=== PATIENT | female | born 1945 | race Caucasian/White ===

== ENCOUNTER 2020-09-20 09:33 | Outpatient (CLI) | payer MEDICAID, SELFPAY ==
--- NOTE | 2020-09-20 09:38 | MM_ITS ---
WS: [id number] Right breast diagnostic digital mammogram, 09/20/2020 Clinical Data: HX OF BREAST CA Comparison: 08/08/2019, 06/29/2018, 06/03/2017, 04/14/2016, 03/25/2015, 03/08/2014, 03/06/2013, 03/04/2012, 02/23, 02/12/2009, 12/13/2007, 12/02/2006. Findings: The right breast shows fat replacement. There are vascular calcifications in the right breast. No spi culated masses or clustered calcifications are seen. MM/[place] [id number] Impression: 1. Negative right breast mammogram unchanged. 2. Recommend annual right breast mammogram. BIRADS: 1-Negative FOLLOW UP: 1 Year Follow-up The CAD checker dump grounds was used.
== END 2020-09-20 09:34 | disposition home or self-care (01) ==
PROVIDERS: Family Provider Internal Medicine; PCP Internal Medicine; Visit Provider Internal Medicine
DX: Z85.3 Personal history of malignant neoplasm of breast (principal)
CPT/HCPCS: 77065

== ENCOUNTER 2020-12-09 09:48 | Emergency (ER) | payer MEDICAID, SELFPAY ==
[2020-12-09 09:51] VITALS: BP 169/76; PULSE 82; RESP 18; TEMP 36.4; O2SAT 96; BMI 31.8
--- NOTE | 2020-12-09 10:00 | XRR_ITS ---
PROCEDURE INFORMATION: Exam: XR Sacrum and Coccyx, 2 or More Views Exam date and time: 12/09/2020 11:16 AM Age: 75 years old Clinical indication: Pain and injury or trauma; Fall; Blunt trauma (contusions or hematomas); Pain in coccyx area; Additional info: Fall/pain TECHNIQUE: Imaging protocol: XR of the sacrum and coccyx, 2 or more views. COMPARISON: CR Hip 2-3v RIGHT wwo Pelv* [id number] 08/08/2018 1:30 PM FINDINGS: Bones/joints: There is degenerative narrowing sclerosis and osteophyte formation in the lower lumbar spine. No acute fracture. Soft tissues: Normal. XR/XR sacrum coccyx min 2V [id number] IMPRESSION: No acute findings.
--- NOTE | 2020-12-09 10:00 | XRR_ITS ---
PROCEDURE INFORMATION: Exam: XR Lumbosacral Spine Exam date and time: 12/09/2020 11:16 AM Age: 75 years old Clinical indication: Pain and injury or trauma; Fall; Blunt trauma (contusions or hematomas); Low back pain; Additional info: Fall pain TECHNIQUE: Imaging protocol: XR of the lumbosacral spine. Views: 2 or 3 views. COMPARISON: CR Hip 2-3v RIGHT wwo Pelv* [id number] 08/08/2018 1:30 PM FINDINGS: Bones/joints: Chronic degenerative changes are present in the lumbar spine with joint space narrowing sclerosis and osteophytes. There is sclerosis in the lower lumbar facet joints. No fractures or other acute abnormalities are seen. There is mild scoliosis. Soft tissues: Unremarkable. XR/XR lumbar spine 2-3V* [id number] IMPRESSION: Chronic degenerative disease. No acute abnormality.
--- NOTE | 2020-12-09 10:00 | XRR_ITS ---
PROCEDURE INFORMATION: Exam: XR Right Hip with Pelvis when Performed Exam date and time: 12/09/2020 11:16 AM Age: 75 years old Clinical indication: Pain and injury or trauma; Fall; Blunt trauma (contusions or hematomas); Hip pain; Right hip; Prior surgery TECHNIQUE: Imaging protocol: XR Right hip with pelvis when performed. Views: 1 view. COMPARISON: CR Hip 2-3v RIGHT wwo Pelv* [id number] 08/08/2018 1:30 PM FINDINGS: Bones/joints: Metal orthopedic hardware bridges an old right femoral neck fracture. No recent fracture or other acute bony abnormalities are seen. Degenerative changes are present in the lower lumbar spine with sclerosis and osteophyte formation. Soft tissues: Unremarkable. XR/XR hip RT 2-3V wo/w pel* [id number] IMPRESSION: No acute abnormality.
--- NOTE | 2020-12-09 10:02 | W.ED.FALL ---
HPI - Fall General: Chief Complaint: Fall Stated Complaint: FALL - R HIP Time Seen by Provider: 12/09/20 09:51 History of Present Illness: HPI Narrative: Old female presents with complaints of pain is hard to get her to focus on a specific area. Was able to get her to name the right hip is apparently the most significant amount of her problem. She fell 3 days ago has been walking with a walker since then. She usually does not use a walker. She complains of pain what she describes as all over on and try to get her to focus of more she will say it is her low back or kidney area her pelvis or sacrum and her hips particularly the right side. She not strike her head she did not lose consciousness when she fell. She only fell at one time. She said prior to the fall she was able to ambulate from one apartment to the other approximately 15 feet without any assistance. complaint: fall Onset (ago): day(s) (3) Fall from: standing Place fall occurred: home Loss of consciousness: None Prolonged down time: no Symptoms prior to fall: none Location of injury: back, pelvis and buttocks Associated symptoms-after fall: Reports difficulty walking; Denies abdominal pain, chest pain, confusion, headache(s), hematuria, lightheadedness, neck pain, numbness, short of breath or vertigo Review of Systems Const: Denies: fever(s), chills, body aches, change in appetite, fatigue or malaise ENMT: Denies: throat pain, ear or mastoid pain, nasal discharge or nasal congestion Card: Denies: chest pain or lightheadedness Resp: Denies: dyspnea, productive cough or non-productive cough GI: Denies: abdominal pain : Denies: hematuria Musc: Denies: neck pain Skin/Breast: Denies: rash or pruritus Neuro: Reports: difficulty walking; Denies: headache(s), vertigo or confusion PFS ED PFSH: Medical History (Updated 12/09/20 @ 15:20 by Antonio Little DO) Amputation of right forefoot Diabetes mellitus Physical Exam Const: COMMON NORMALS: no acute distress GENERAL APPEARANCE: cooperative and comfortable ORIENTATION/CONSCIOUSNESS: Yes awake, Yes oriented to person, Yes oriented to place and Yes oriented to time HENMT: COMMON NORMALS: normocephalic, atraumatic and hearing grossly normal bilaterally HEAD & SCALP: normocephalic and atraumatic Neck/C-Spine: COMMON NORMALS: no JVD Resp: COMMON NORMALS: normal respiratory effort, No retractions, No use of accessory muscles and clear to auscultation bilaterally AUSCULTATION: clear to auscultation bilaterally Cardio: COMMON NORMALS: no JVD, regular rate, regular rhythm and No murmurs present (Cardio) RATE: regular rate RHYTHM: regular rhythm GI: COMMON NORMALS: Soft to palpation and No hepatosplenomegaly present AUSCULTATION: Yes normoactive bowel sounds PALPATION: Yes Soft to palpation, No Tenderness to palpation present (GI), No Guarding due to palpation present (GI) and Yes No hepatosplenomegaly present Extremity: COMMON NORMALS: normal to inspection, capillary refill normal, no clubbing, cyanosis or edema, no calf tenderness and no pedal edema Neuro: SENSORIUM/ORIENTATION: Yes oriented to person, Yes oriented to place and Yes oriented to time Skin: COMMON NORMALS: no rashes or lesions noted GENERAL SKIN EXAM: no rashes or lesions noted Course Vital Signs: Vital signs: Vital Signs Temperature 97.5 F L 12/09/20 09:51 Pulse Rate 108 H 12/09/20 15:33 Respiratory Rate 18 12/09/20 15:33 Blood Pressure 185/64 12/09/20 15:33 Pulse Oximetry 98 12/09/20 15:33 MDM - Fall MDM Narrative: Medical decision making narrative: Patient had limited mobility prior states now she needs her walker all the time there is no acute fractures identified in any of her x-rays. She was concerned about her mobility. She declined physical therapy gait and transfer evaluation. She opted instead to go home she will use her walker at home. We had quite a bit of difficulty getting her blood. Her potassium is slightly elevated I believe that is due to mild hemolysis. She was given fluids. Asked her to hold her lisinopril. We will go ahead and discharge her home for now have her follow-up with primary care doctor in the next few days. We did offer to place her in a [place] [facility] facility she refuses. Lab Data: Labs: Lab Results 12/09/20 12/09/20 12/09/20 Range/Units 10:30 10:30 11:43 WBC 12.2 H (4.0-10.0) 10^3/ uL RBC 3.90 L (4.1-5.3) 10^6/u L Hgb 12.3 (11.5-15.3) g/dL Hct 38.3 (37.0-47.0) % MCV 98.2 (81-99) fL MCH 31.5 (28.0-34.0) pg MCHC 32.1 (30.0-36.0) g/dL RDW 15.6 H (12.1-15.1) % Plt Count 207 (130-400) 10^3/c mm MPV 10.4 (7.4-10.4) fL Neut % (Auto) 72.9 % Lymph % (Auto) 16.3 % Cole % (Auto) 7.9 % Eos % (Auto) 2.0 % Baso % (Auto) 0.4 % Neut # (Auto) 8.90 H (1.8-7.7) 10^3/u L Lymph # (Auto) 2.0 (0.8-4.8) 10^3/u L Cole # (Auto) 1.0 H (0.2-0.9) 10^3/u L Eos # (Auto) 0.3 (0.0-0.8) 10^3/u L Baso # (Auto) 0.1 (0.0-0.1) 10^3/u L Nucleated RBC % (a uto) 0 % Nucleated RBCs # 0.0 /100WBC Sodium Cancelled Cancelled Potassium Cancelled Cancelled Chloride Cancelled Cancelled Carbon Dioxide Cancelled Cancelled Anion Gap Cancelled Cancelled BUN Cancelled Cancelled Creatinine Cancelled Cancelled GFR Calculation Cancelled Cancelled Glucose Cancelled Cancelled Calculated Osmolal ity Cancelled Cancelled Calcium Cancelled Cancelled Magnesium Cancelled Cancelled Total Bilirubin Cancelled Cancelled AST Cancelled Cancelled ALT Cancelled Cancelled Alkaline Phosphata se Cancelled Cancelled Creatine Kinase Cancelled Cancelled Total Protein Cancelled Cancelled Albumin Cancelled Cancelled Globulin Cancelled Cancelled Urine Color (Yellow) Urine Appearance (CLEAR) Urine pH (5-7) Ur Specific Gravit y (1.005-1.030) Urine Protein (Negative) Urine Glucose (UA) (Normal) Urine Ketones (Negative) Urine Blood (Negative) Urine Nitrate (Negative) Urine Bilirubin (Negative) Urine Urobilinogen (Negative) mg/dL Ur Leukocyte Mercedes ase (Negative) 12/09/20 12/09/20 Range/Units 12:00 12:44 WBC (4.0-10.0) 10^3/ uL RBC (4.1-5.3) 10^6/u L Hgb (11.5-15.3) g/dL Hct (37.0-47.0) % MCV (81-99) fL MCH (28.0-34.0) pg MCHC (30.0-36.0) g/dL RDW (12.1-15.1) % Plt Count (130-400) 10^3/c mm MPV (7.4-10.4) fL Neut % (Auto) % Lymph % (Auto) % [place] % (Auto) % Eos % (Auto) % Baso % (Auto) % Neut # (Auto) (1.8-7.7) 10^3/u L Lymph # (Auto) (0.8-4.8) 10^3/u L Cole # (Auto) (0.2-0.9) 10^3/u L Eos # (Auto) (0.0-0.8) 10^3/u L Baso # (Auto) (0.0-0.1) 10^3/u L Nucleated RBC % (a uto) % Nucleated RBCs # /100WBC Sodium 139 Potassium 5.3 H Chloride 108 H Carbon Dioxide 19 L Anion Gap 17.3 BUN 34 H Creatinine 1.5 H GFR Calculation Not Reportable Glucose 142 H Calculated Osmolal ity 298 H Calcium 9.3 Magnesium 1.2 L Total Bilirubin 0.5 AST 15 ALT 11 Alkaline Phosphata se 108 H Creatine Kinase 23 L Total Protein 7.6 Albumin 3.9 Globulin 3.7 Urine Color Yellow (Yellow) Urine Appearance Clear (CLEAR) Urine pH 5 (5-7) Ur Specific Gravit y 1.020 (1.005-1.030) Urine Protein Neg (Negative) Urine Glucose (UA) Norm (Normal) Urine Ketones Negative (Negative) Urine Blood Neg (Negative) Urine Nitrate Negative (Negative) Urine Bilirubin Neg (Negative) Urine Urobilinogen Norm (Negative) mg/dL Ur Leukocyte Mercedes ase Negative (Negative) Discharge Plan Discharge Patient Disposition: Home Clinical Impression: Fall, Diabetes mellitus Condition: Stable Prescriptions: No Action chromium 100 mcg Tablet 100 mcg PO DAILY RF: 0 atorvastatin 20 mg tablet 20 mg PO DAILY RF: 0 carvedilol 3.125 mg tablet 3.125 mg PO BID RF: 0 Vitamin C 500 mg Tablet 500 mg PO DAILY RF: 0 Garcinia Cambogia 200-500 mcg-mg Tablet 1 tab PO DAILY RF: 0 allopurinol 300 mg tablet 300 mg PO DAILY RF: 0 lisinopril 5 mg tablet 5 mg PO DAILY RF: 0 metformin 500 mg tablet extended release 24 hr 1,000 mg PO DAILY RF: 0 Discharge Orders: Discharge ED (Routine); Ordered 12/09/20 Ordered By: Antonio Little Referrals: Naldo Rivero DO [Primary Care Provider] - Discharge Diet: Usual diet Discharge Activity: Resume usual activity Patient Instructions: Opioid Safety Coding Level of Care Code ED Husker Operator for Pushpa Fwd Exam Comprehensive
[2020-12-09 10:37] LABS: Basophils # 0.1 10^3/uL (0.0-0.1); Basophils % 0.4 %; Eosinophils # 0.3 10^3/uL (0.0-0.8); Hematocrit 38.3 % (37.0-47.0); Hemoglobin 12.3 g/dL (11.5-15.3); Lymphocytes % 16.3 %; Mean Corpuscular HGB Conc 32.1 g/dL (30.0-36.0); Mean Corpuscular Hemoglobin 31.5 pg (28.0-34.0); Mean Corpuscular Volume 98.2 fL (81-99); Mean Platelet Volume 10.4 fL (7.4-10.4); Monocytes % 7.9 %; Neutrophils % 72.9 %; Nucleated Red Blood Cells % 0 %; Platelet Count 207 10^3/cmm (130-400); Red Cell Distribution Width 15.6 % (12.1-15.1); White Blood Count 12.2 10^3/uL (4.0-10.0)
[2020-12-09 12:00] VITALS: BP 125/64; PULSE 74; RESP 18; O2SAT 98
[2020-12-09 12:11] LABS: Add Urine Microscopic? NO
[2020-12-09 12:26] LABS: Bilirubin Urine Neg (Negative); Blood Urine Neg (Negative); Glucose Urine UA Norm (Normal); Ketones Urine Negative (Negative); Leukocyte Esterase Urine Negative (Negative); Nitrate Urine Negative (Negative); Protein Urine Neg (Negative); Urine Appearance Clear (CLEAR); Urine Color Yellow (Yellow); Urobilinogen Urine Norm (Negative); pH Urine 5 (5-7)
--- NOTE | 2020-12-09 12:38 | PC.NURSE ---
EMS attempted IV x4 without success, nurse attempted 4x without success. Patients veins blow out each time. Lab draws hemolyzed as well x2 as well
[2020-12-09 13:05] LABS: Alanine Aminotransferase 11 U/L (0-33); Albumin Level 3.9 g/dL (3.5-5.2); Alkaline Phosphatase 108 IU/L (35-105); Anion Gap 17.3 (5-19); Aspartate Amino Transferase 15 U/L (0-32); Blood Urea Nitrogen 34 mg/dL (8-23); Calcium 9.3 mg/dL (8.5-10.5); Carbon Dioxide 19 mmol/L (22-29); Chloride 108 mmol/L (98-107); Creatine Phosphokinase 23 U/L (26-192); Globulin 3.7 g/dL (1.3-4.6); Glucose 142 mg/dL (65-115); Magnesium 1.2 mg/dL (1.7-2.3); Osmolality Calculated 298 mOsm/kg (285-295); Potassium 5.3 mmol/L (3.5-5.1); Sodium 139 mmol/L (136-145); Total Bilirubin 0.5 mg/dL (0.15-1.2); Total Protein 7.6 g/dL (6.6-8.7)
[2020-12-09 13:27] VITALS: BP 111/59; PULSE 77; RESP 22; O2SAT 98
[2020-12-09 14:00] VITALS: PULSE 94; RESP 20; O2SAT 98
[2020-12-09] MEDS: HYDROcodone-acetaminophen 5-325 mg Tablet 1 TAB PO (14:03)
--- NOTE | 2020-12-09 14:10 | PC.NURSE ---
Patient refused physical therapy stating that she wouldnt be able to afford the PT bill as insurance will not cover cost
[2020-12-09 15:00] VITALS: BP 185/64; PULSE 88; RESP 18; O2SAT 97
[2020-12-09 15:33] VITALS: BP 185/64; PULSE 108; RESP 18; O2SAT 98
== END 2020-12-09 15:24 | disposition home or self-care (01) ==
PROVIDERS: Emergency Provider Family Medicine; PCP Internal Medicine
DX: E11.9 Type 2 diabetes mellitus without complications (principal); Z79.84 Long term (current) use of oral hypoglycemic drugs; Z89.431 Acquired absence of right foot
CPT/HCPCS: 36415; 72100; 72220; 73502; 80053; 81003; 82550; 83735; 85025; 99283

== ENCOUNTER 2021-11-13 10:45 | Outpatient (CLI) | payer MEDICAID, SELFPAY ==
--- NOTE | 2021-11-13 11:03 | MM_ITS ---
WS: [id number] RIGHT DIGITAL MAMMOGRAPHY WITH CAD CLINICAL INFORMATION: HX OF BREAST CA HISTORY: History of LEFT mastectomy. COMPARISON: September 20, 2020 TECHNIQUE: 5 views of the right breast were obtained. FINDINGS: Scattered fibroglandular densities of the right breast. Vascular calcification. No suspicious focal mass, asymmetry, calcifications, or architectural distortion. No evidence of valerie gnancy. MM/[place] [id number] IMPRESSION: BI-RADS: 2-Benign FOLLOW UP: 1 Year Follow-up Recommend return to annual diagnostic mammography.
== END 2021-11-13 10:46 | disposition home or self-care (01) ==
PROVIDERS: PCP Internal Medicine; Visit Provider Internal Medicine
DX: Z85.3 Personal history of malignant neoplasm of breast (principal)
CPT/HCPCS: 77065

== ENCOUNTER 2022-05-16 09:00 | Emergency (ER) | payer MEDICAID, SELFPAY ==
--- NOTE | 2022-05-16 09:05 | XRR_ITS ---
PROCEDURE INFORMATION: Exam: XR Right Hip Exam date and time: 05/16/2022 9:53 AM Age: 77 years old Clinical indication: Injury or trauma; Fall; Blunt trauma (contusions or hematomas); Right; Prior surgery; Surgery type: RT hip TECHNIQUE: Imaging protocol: Radiologic exam of the Right hip. Views: 2 or 3 views hip with pelvis when performed. AP 1 view pelvis with 2 views hip COMPARISON: CR XR hip RT 2-3V wo/w pel* [id number] 12/09/2020 10:52 AM FINDINGS: Bones/joints: Postsurgical changes are once again seen status post right proximal femoral dynamic hip screw fixation with with distal single anchoring screw. Unchanged appearance of the proximal right femoral region is seen status post healed intratrochanteric fracture. Unchanged moderate right hip degenerative changes are seen. There are no acute fractures or dislocations seen. The visualized right sacroiliac joint shows moderate degenerative changes. Soft tissues: There is no radiographic soft tissue swelling. There are no radiopaque foreign bodies. Severe atherosclerotic vascular calcifications are seen. Notes: If there is further concern, recommend follow-up radiographs or MRI for complete assessment. XR/XR hip RT 2-3V wo/w pel* [id number] IMPRESSION: No acute fracture or dislocation of the right hip. Postsurgical changes of the right proximal femur. Old healed right proximal femoral intratrochanteric fracture.
--- NOTE | 2022-05-16 09:05 | XRR_ITS ---
PROCEDURE INFORMATION: Exam: XR Chest Exam date and time: 05/16/2022 9:53 AM Age: 77 years old Clinical indication: Injury or trauma; Fall; Blunt trauma (contusions or hematomas); Additional info: Dizzy TECHNIQUE: Imaging protocol: Radiologic exam of the chest. Views: 1 view. COMPARISON: CR Chest 1 [place] [id number] 08/07/2018 2:23 PM FINDINGS: Lungs: There are normal lung volumes without confluent interstitial or airspace opacities. Age-related interstitial prominence is seen in the lungs. Pleural spaces: There are no pleural effusions or pneumothorax. Heart/Mediastinum: The heart size is normal. There is a mildly tortuous thoracic aorta. The trachea is in the midline. Bones/joints: No acute abnormalities. Worsened severe bilateral shoulder degenerative changes are seen with subacromial space narrowing and superior humeral head subluxations, consistent with rotator cuff tears. Small degenerative osteophytes and mild degenerative disc disease changes are seen throughout the thoracic spine. There is generalized osteopenia. XR/XR chest 1V portable [id number] IMPRESSION: No confluent infiltrates in the lungs.
--- NOTE | 2022-05-16 09:05 | ECG_ITS ---
[facility] Test Date: 2022-05-16 Pat Name: Shraddha Bull Department: Room: Gender: Female Tool Procurement Coordinator: : 1945 Requested By: Shirley Palma Order Number: [id number] Nina MD: Yury Lynch M.D. Measurements Intervals [place] Rate: 88 P: 28 VA: 159 QRS: 43 QRSD: 122 T: -3 QT: 388 QTc: 471 Interpretive Statements SINUS RHYTHM POSSIBLE RIGHT VENTRICULAR CONDUCTION DELAY [RSR (QR) IN V1/V2] POSSIBLE INFERIOR MYOCARDIAL INFARCTION , PROBABLY OLD [30 ms Q WAVE IN II/aVF] Compared to ECG 08/07/2018 15:36:33 Myocardial infarct finding now present Electronically Signed On 05-16-2022 20:31:48 CDT by Yury Lynch M.D. [id number]
[2022-05-16 09:08] VITALS: BP 170/93; PULSE 93; RESP 18; O2SAT 93
--- NOTE | 2022-05-16 09:17 | ED_ITS ---
HPI - Dizziness General: Chief Complaint: Dizziness Stated Complaint: DIZZINESS/NAUSEA Time Seen by Provider: 05/16/22 09:01 Source: patient and EMS Mode of arrival: EMS Limitations: no limitations History of Present Illness: HPI Narrative: 77-year-old female who states she had gotten up this morning with a bath and states she stood up quickly and got dizzy. She states she then urinated on herself and tripped and fell. She states she had to use her life alert as she was not able to get up. She states that she feels improved she denies any pain from her fall denies hitting her head denies any chest pain denies any dizziness currently she did not have a syncopal event that was near syncopal. Associated symptoms: Denies chest pain, chills, nausea or vomiting Review of Systems Const: Denies: fever(s), chills, body aches or change in appetite Eyes: Denies: blurry vision or eye discomfort ENMT: Denies: throat pain or dental pain Card: Denies: chest pain Resp: Denies: dyspnea GI: Denies: abdominal pain, nausea, vomiting or diarrhea : Denies: dysuria Musc: Denies: neck pain or back pain Skin/Breast: Denies: rash Neuro: Reports: dizziness Psych: Denies: depression [place]/Lymph: Denies: easy bruising All/Imm: Denies: urticaria PFSH ED PFSH: Medical History Amputation of right forefoot Diabetes mellitus Social History (Updated 05/16/22 @ 09:18 by Shirley Palma MD) Substance/Drug Use: never Physical Exam Const: COMMON NORMALS: no acute distress, patient oriented x3 and healthy appearing HENMT: COMMON NORMALS: normocephalic and atraumatic HEAD & SCALP: normocephalic and atraumatic Eye: COMMON NORMALS: Equal, round and reactive pupils present and EOMs intact bilaterally PUPIL: Yes Equal, round and reactive pupils present Neck/C-Spine: COMMON NORMALS: full ROM and supple Chest: COMMONS NORMALS: normal inspection of the chest and normal palpation of entire chest wall Resp: COMMON NORMALS: normal respiratory effort, No retractions, No use of accessory muscles and clear to auscultation bilaterally AUSCULTATION: clear to auscultation bilaterally Cardio: COMMON NORMALS: regular rate, regular rhythm and No murmurs present (Cardio) RATE: regular rate RHYTHM: regular rhythm GI: COMMON NORMALS: Normal to inspection, nondistended, normoactive bowel sounds present, Soft to palpation, non-tender and no masses PALPATION: Yes Soft to palpation Extremity: COMMON NORMALS: normal to inspection and full ROM Neuro: COMMON NORMALS: patient oriented x3, moves all extremities and no focal motor deficits Psych: COMMON NORMALS: mental status grossly normal, Normal thought process present and cooperative THOUGHT PROCESS: Normal thought process present Skin: COMMON NORMALS: no rashes or lesions noted and no wounds GENERAL SKIN EXAM: no rashes or lesions noted Course Vital Signs: Vital signs: Vital Signs Pulse Rate 83 05/16/22 11:35 Respiratory Rate 12 05/16/22 11:35 Blood Pressure 181/112 05/16/22 11:35 Pulse Oximetry 98 05/16/22 11:35 Oxygen Delivery Me thod 05/16/22 09:08 MDM - Dizziness Medical Decision Making Patient presents here with dizziness and near syncopal event patient's back to her baseline here she states she feels well she is able to ambulate troponins here are negative she is hypertensive she has been noncompliant with her meds I informed her she does need to take her meds as prescribed she is stable for discharge she has no signs of a stroke she is to follow-up with PCP and return if worsening. Lab Data : 05/16/22 09:21 05/16/22 09:21 Radiology Impressions Chest X-Ray 05/16/22 09:05 IMPRESSION: No confluent infiltrates in the lungs. Hip/Pelvis X-Ray 05/16/22 09:05 IMPRESSION: No acute fracture or dislocation of the right hip. Postsurgical changes of the right proximal femur. Old healed right proximal femoral intratrochanteric fracture. Laboratory Results WBC 9.9 10^3/uL (4.0-10.0) 05/16/22 09:21 RBC 3.75 10^6/uL (4.1-5.3) L 05/16/22 09:21 Hgb 11.6 g/dL (11.5-15.3) 05/16/22 09:21 Hct 36.6 % (37.0-47.0) L 05/16/22 09:21 MCV 97.6 fl (81-99) 05/16/22 09:21 MCH 30.9 pg (28.0-34.0) 05/16/22 09:21 MCHC 31.7 g/dL (30.0-36.0) 05/16/22 09:21 RDW 14.2 % (12.1-15.1) 05/16/22 09:21 Plt Count 323 10^3/cmm (130-400) 05/16/22 09:21 MPV 10.0 fL (7.4-10.4) 05/16/22 09:21 Neut % (Auto) 72.6 % 05/16/22 09:21 Lymph % (Auto) 16.3 % 05/16/22 09:21 [place] % (Auto) 8.2 % 05/16/22 09:21 Eos % (Auto) 1.9 % 05/16/22 09:21 Baso % (Auto) 0.4 % 05/16/22 09:21 Neut # (Auto) 7.19 10^3/uL (1.8-7.7) 05/16/22 09:21 Lymph # (Auto) 1.6 10^3/uL (0.8-4.8) 05/16/22 09:21 [place] # (Auto) 0.8 10^3/uL (0.2-0.9) 05/16/22 09:21 Eos # (Auto) 0.2 10^3/uL (0.0-0.8) 05/16/22 09:21 Baso # (Auto) 0.0 10^3/uL (0.0-0.1) 05/16/22 09:21 Nucleated RBC % (auto) 0 % 05/16/22 09:21 Nucleated RBCs # 0.0 /100WBC 05/16/22 09:21 Sodium 141 mmol/L (136-145) 05/16/22 09:21 Potassium 4.1 mmol/L (3.5-5.1) 05/16/22 09:21 Chloride 101 mmol/L (98-107) 05/16/22 09:21 Carbon Dioxide 24 mmol/L (22-29) 05/16/22 09:21 Anion Gap 20.1 (5-19) H 05/16/22 09:21 BUN 14 mg/dL (8-23) 05/16/22 09:21 Creatinine 1.1 mg/dL (0.5-0.9) H 05/16/22 09:21 GFR Calculation Not Reportable 05/16/22 09:21 Glucose 169 mg/dL (65-115) H 05/16/22 09:21 Calculated Osmolality 296 mOsm/kg (285-295) H 05/16/22 09:21 Calcium 9.4 mg/dL (8.5-10.5) 05/16/22 09:21 Total Bilirubin 0.6 mg/dL (0.15-1.2) 05/16/22 09:21 AST 29 U/L (0-32) 05/16/22 09:21 ALT 18 U/L (0-33) 05/16/22 09:21 Alkaline Phosphatase 93 IU/L (35-105) 05/16/22 09:21 Troponin T Baseline 25 ng/L (0-10) H 05/16/22 09:21 Troponin T 120 Minute 25.30 ng/L (0-10) H 05/16/22 11:27 Delta Troponin T 0.30 ABS# (0-10) 05/16/22 11:27 Total Protein 6.4 g/dL (6.6-8.7) L 05/16/22 09:21 Albumin 3.7 g/dL (3.5-5.2) 05/16/22 09:21 Globulin 2.7 g/dL (1.3-4.6) 05/16/22 09:21 EKG Data EKG 1: I personally reviewed and interpreted this EKG as follows: EKG interpretation date: 05/16/22 EKG interpretation time: 09:15 Interpretation: nsr hr [address] or t wave abnormalities qrs 122 qtc 434 EKG 2: I personally reviewed and interpreted this EKG as follows: EKG interpretation date: 05/16/22 EKG interpretation time: 11:21 Interpretation: nsr hr [address] or t wave abnormalities qrs 128 qtc 443 Discharge Plan Discharge Patient Disposition: Home Clinical Impression: Near syncope, Hypertension Prescriptions: No Action chromium 100 mcg Tablet 100 mcg PO DAILY atorvastatin 20 mg tablet 20 mg PO DAILY carvedilol 3.125 mg tablet 3.125 mg PO BID Vitamin C 500 mg Tablet 500 mg PO DAILY Garcinia Cambogia 200-500 mcg-mg Tablet 1 tab PO DAILY allopurinol 300 mg tablet 300 mg PO DAILY lisinopril 5 mg tablet 5 mg PO DAILY metformin 500 mg tablet extended release 24 hr 1,000 mg PO DAILY Discharge Orders: Discharge ED (Routine); Ordered 05/16/22 Ordered By: Shirley Palma Referrals: Naldo Rivero DO [Primary Care Provider] - 1-3 days Discharge Diet: Advance as tolerated Discharge Activity: Resume usual activity Patient Instructions: Hypertension (ED), Near Syncope (ED) Coding Level of Care Code ED Instrument And Control Technician for [place] Fwd Exam Comprehensive
[2022-05-16 09:34] LABS: Basophils % 0.4 %; Eosinophils # 0.2 10^3/uL (0.0-0.8); Eosinophils % 1.9 %; Hematocrit 36.6 % (37.0-47.0); Hemoglobin 11.6 g/dL (11.5-15.3); Lymphocytes # 1.6 10^3/uL (0.8-4.8); Lymphocytes % 16.3 %; Mean Corpuscular HGB Conc 31.7 g/dL (30.0-36.0); Mean Corpuscular Hemoglobin 30.9 pg (28.0-34.0); Mean Corpuscular Volume 97.6 fl (81-99); Monocytes # 0.8 10^3/uL (0.2-0.9); Monocytes % 8.2 %; Neutrophils # 7.19 10^3/uL (1.8-7.7); Neutrophils % 72.6 %; Nucleated Red Blood Cells % 0 %; Platelet Count 323 10^3/cmm (130-400); Red Blood Count 3.75 10^6/uL (4.1-5.3); Red Cell Distribution Width 14.2 % (12.1-15.1); White Blood Count 9.9 10^3/uL (4.0-10.0)
[2022-05-16 09:52] LABS: Alanine Aminotransferase 18 U/L (0-33); Albumin Level 3.7 g/dL (3.5-5.2); Alkaline Phosphatase 93 IU/L (35-105); Anion Gap 20.1 (5-19); Aspartate Amino Transferase 29 U/L (0-32); Blood Urea Nitrogen 14 mg/dL (8-23); Calcium 9.4 mg/dL (8.5-10.5); Carbon Dioxide 24 mmol/L (22-29); Chloride 101 mmol/L (98-107); Globulin 2.7 g/dL (1.3-4.6); Glucose 169 mg/dL (65-115); Osmolality Calculated 296 mOsm/kg (285-295); Potassium 4.1 mmol/L (3.5-5.1); Sodium 141 mmol/L (136-145); Total Bilirubin 0.6 mg/dL (0.15-1.2); Total Protein 6.4 g/dL (6.6-8.7)
[2022-05-16 10:00] LABS: Troponin(5th) Baseline 25 ng/L (0-10)
[2022-05-16] MEDS: labetalol 5 mg/mL SDV 20mL 10 MG IVP (10:07)
[2022-05-16 10:30] VITALS: BP 181/91; PULSE 78; RESP 15; O2SAT 98
--- NOTE | 2022-05-16 11:05 | ECG_ITS ---
[facility] Test Date: 2022-05-16 Pat Name: Shraddha Bull Department: Room: Gender: Female Gag Writer: : 1945 Requested By: Shirley Palma Order Number: [id number] Nina MD: Yury Lynch M.D. Measurements Intervals [place] Rate: 78 P: 47 MI: 174 QRS: 48 QRSD: 128 T: 6 QT: 410 QTc: 469 Interpretive Statements SINUS RHYTHM POSSIBLE INFERIOR MYOCARDIAL INFARCTION , PROBABLY OLD [30 ms Q WAVE IN II/aVF] Compared to ECG 05/16/2022 09:15:31 No significant changes Electronically Signed On 05-16-2022 20:33:22 CDT by Yury Lynch M.D. [id number]
[2022-05-16 11:35] VITALS: BP 181/112; PULSE 83; RESP 12; O2SAT 98
[2022-05-16] MEDS: hyDRALAzine 20 mg/mL INJ 1 mL 10 MG IVP (11:37)
--- NOTE | 2022-05-16 11:50 | PC.NURSE ---
pt amb [address] chaudhary he verbalized understanding. pt then assisted into [facility] shown the bath room and provided with 2 pads per pt request.
== END 2022-05-16 12:17 | disposition home or self-care (01) ==
PROVIDERS: Emergency Provider Emergency Medicine; PCP Internal Medicine
DX: R55 Syncope and collapse (principal); I10 Essential (primary) hypertension; Z79.84 Long term (current) use of oral hypoglycemic drugs; E11.9 Type 2 diabetes mellitus without complications
CPT/HCPCS: 36415; 71045; 73502; 80053; 84484; 85025; 93005; 96374; 96375; 99285; J0360; J3490

== ENCOUNTER 2023-02-12 12:57 | Outpatient (CLI) | payer MEDICAID, SELFPAY ==
--- NOTE | 2023-02-12 13:11 | MM_ITS ---
WS: [id number] RIGHT 3D TOMOSYNTHESIS DIGITAL MAMMOGRAPHY WITH CAD CLINICAL INFORMATION: SCREENING COMPARISON: 2021 TECHNIQUE: 3 views of the right breast were obtained. FINDINGS: Scattered fibroglandular densities of the right breast. No suspicious focal mass, asymmetry, calcifications, or architectural distortion. No evidence of valerie gnancy. Vascular calcification. Punctate calcifications. MM/[place] [id number] IMPRESSION: BI-RADS: 2-Benign FOLLOW UP: 1 Year Follow-up Recommend return to annual diagnostic mammography.
== END 2023-02-12 12:58 | disposition home or self-care (01) ==
LOC: RAD 13:05
PROVIDERS: PCP Family Medicine; Visit Provider Family Medicine
DX: Z12.31 Encounter for screening mammogram for malignant neoplasm of breast (principal)
CPT/HCPCS: 77061; G0279

== ENCOUNTER → 2023-07-05 09:20 | Outpatient (BNVA) | payer MEDICAID, SELFPAY | PROVIDERS: PCP Family Medicine; Visit Provider Nurse Practitioner Family | DX: M10.9 Gout, unspecified (principal) | CPT/HCPCS: 84550 ==

== ENCOUNTER 2024-04-10 09:19 | Outpatient (CLI) | payer MEDICAID, SELFPAY ==
--- NOTE | 2024-04-10 09:25 | MM_ITS ---
WS: [id number] Right breast diagnostic 3D tomosynthesis digital mammogram, 04/10/2024 Clinical Data: HX OF BREAST CANCER Comparison: 02/12/2023, 11/13/2021, 09/20/2020, 08/08/2019, 06/29/2018, 06/03/2017, 04/14/2016, 03/25/2015, 03/08/2014, 03/06/2013, 03/04/2012, 02/23/2011, 02/17/2010, 02/12/2009, 12/13/2007, 12/02/2006. Findings: The right breast shows fibroglandular tissue. There are benign vascular calcifications and lymph node s in the axilla. MM/[place] [id number] Impression: Negative right breast mammogram unchanged. BIRADS: 1-Negative FOLLOW UP: 1 Year Follow-up The CAD credit report checker was used.
== END 2024-04-10 09:20 | disposition home or self-care (01) ==
LOC: RAD 09:20
PROVIDERS: PCP Family Medicine; Visit Provider Family Medicine
DX: Z85.3 Personal history of malignant neoplasm of breast (principal)
CPT/HCPCS: 77061; G0279

== ENCOUNTER 2024-05-24 14:55 | Inpatient (IN) | payer MEDICAID, SELFPAY ==
--- NOTE | 2024-05-24 14:57 | XRR_ITS ---
PROCEDURE INFORMATION: Exam: XR Right Hip Exam date and time: 05/24/2024 3:51 PM Age: 79 years old Clinical indication: Injury or trauma; Fall; Blunt trauma (contusions or hematomas); Injury date: 2 days ago; Prior surgery; Surgery date: 6+ months; Surgery type: Right hip im TECHNIQUE: Imaging protocol: Radiologic exam of the right hip. Views: 1 view hip with pelvis when performed. COMPARISON: CR XR hip RT 2-3V wo/w pel* [id number] 05/16/2022 9:53 AM FINDINGS: Bones/joints: Redemonstrated intramedullary nail placement transfixing a remote proximal right hip fracture. Hardware appears intact without complication. No dislocation. Suspected mildly displaced fracture of the right superior pubic ramus and nondisplaced fracture of the right inferior pubic ramus Moderate degenerative changes of the right hip with joint space narrowing and subarticular sclerosis. Moderate to advanced degenerative changes of the left hip. Soft tissues: Unremarkable. Vasculature: Vascular calcifications. XR/XR hip RT 2-3V wo/w pel* [id number] IMPRESSION: 1. Suspected mildly displaced right superior pubic ramus fracture and nondisplaced right inferior pubic ramus fracture. 2. Chronic findings as above are similar to prior.
[2024-05-24 15:14] VITALS: BP 124/76; PULSE 96; RESP 16; TEMP 36.7; O2SAT 97; BMI 30.8
--- NOTE | 2024-05-24 15:42 | ED_ITS ---
HPI - Extremity Problem 2 General: Chief complaint: Extremity Injury, Lower Stated complaint: fall (rt hip pain) Time Seen by Provider: 05/24/24 15:26 History of Present Illness: 79-year-old female comes in today with r ight lateral hip pain after falling on the floor yesterday. Patient reports that she was able to get up and ambulate yesterday from her fall today had more increased pain and discomfort. Patient appears nontoxic. Patient appears in no acute distress. Patient has a history of diabetes mellitus, partial right foot amputation, hip repair to the right hip, CVA and high blood pressure. Patient lives in senior apartments. Related Data Home Medications Medication Instructions Recorded Confirmed allopurinol 300 mg tablet 300 mg PO DAILY 12/09/20 07/05/23 ascorbic acid (vitamin C) 500 mg 500 mg PO DAILY 12/09/20 07/05/23 tablet (Vitamin C) atorvastatin 20 mg tablet 20 mg PO DAILY 12/09/20 07/05/23 carvedilol 3.125 mg tablet 3.125 mg PO BID 12/09/20 07/05/23 chromium 100 mcg tablet 100 mcg PO DAILY 12/09/20 07/05/23 chromium 200 mcg-brindal hagen 500 1 tab PO DAILY 12/09/20 07/05/23 mg tablet (Garcinia Cambogia) lisinopril 5 mg tablet 5 mg PO DAILY 12/09/20 07/05/23 metformin 500 mg tablet,extended 1,000 mg PO DAILY 12/09/20 07/05/23 release 24 hr Previous Rx's Medication Instructions Recorded prednisone 20 mg tablet 40 mg (2 x 20 mg) PO DAILY 3 days 07/05/23 #6 tabs Allergies Allergy/AdvReac Type Severity Reaction Status Date / Time aspirin Allergy Severe ALGY-Anaphy Verified 07/05/23 09:01 laxis Penicillins Allergy Severe ALGY-Anaphy Verified 07/05/23 09:01 laxis ibuprofen Allergy Mild ADR-Nausea Verified 07/05/23 09:01 morphine Allergy Mild ADR-Vomitin Verified 07/05/23 09:01 g Review of Systems 2 General: Reports: 10 or more systems reviewed and unremarkable except in HPI and below Musc: Reports: joint pain (Right hip) [facility] ED 2 PFSH: Medical History Amputation of right forefoot Diabetes mellitus Social History Substance/Drug Use: never Physical Exam 2 Const: COMMON NORMALS: alert HENMT: COMMON NORMALS: normocephalic HEAD & SCALP: normocephalic Neck/C-Spine: COMMON NORMALS: full ROM Chest: COMMONS NORMALS: normal palpation of entire chest wall Resp: COMMON NORMALS: normal respiratory effort Cardio: COMMON NORMALS: regular rate RATE: regular rate Back/Pelvis: COMMON NORMALS: thoracic and lumbar spine normal to inspection Extremity: RIGHT LOWER EXTREMITY: Yes hip joint (Lateral hip tenderness) Right hip: Yes inspection, Yes palpation (No inguinal pain) and Yes ROM (Decreased due to pain) Neuro: SENSORIUM/ORIENTATION: Yes alert Skin: COMMON NORMALS: turgor normal GENERAL SKIN EXAM: turgor normal Course 2 Vital Signs: Vital signs: Vital Signs Temperature 98.1 F 05/24/24 15:14 Pulse Rate 80 05/24/24 18:36 Respiratory Rate 18 05/24/24 15:48 Blood Pressure 141/59 05/24/24 17:18 Pulse Oximetry 97 05/24/24 18:36 Oxygen Delivery Me thod Room Air 05/24/24 18:36 MDM - Extremity (Nontraumatic) Medical Decision Making 79-year-old female comes in today for complaints of right hip pain. Patient appears nontoxic. Patient appears in no acute distress. Respirations are even lungs are clear to auscultation. Patient has no inguinal right hip pain but does have pain on palpation of the lateral hip. Differential diagnosis includes fracture, dislocation, contusion. 1619, reviewed patient with Dr. Lemons, attending ER physician, he agreed with plan to reach out to orthopedics for further recommendations regarding pelvic fracture. Discussed patient with Dr. Blake who recommended a CT scan and contact him after results. 1836, Dr. Blake recommended admission under the hospitalist for social placement, he will consult, recommended diet, and nonweightbearing to the right lower extremity. 1919, reviewed patient with Dr. Cox, hospitalist, who accepted patient for admission to inpatient for pelvic fracture and diabetes mellitus. Lab Data 05/24/24 16:49 05/24/24 16:49 Radiology Impressions Hip/Pelvis X-Ray 05/24/24 14:57 IMPRESSION: 1. Suspected mildly displaced right superior pubic ramus fracture and nondisplaced right inferior pubic ramus fracture. 2. Chronic findings as above are similar to prior. Pelvis CT 05/24/24 16:26 IMPRESSION: 1. Comminuted, moderately displaced right superior pubic ramus fracture. 2. Comminuted, mildly displaced right inferior pubic ramus fracture. 3. Additional chronic findings as above Laboratory Results WBC 10.22 10^3/uL (3.29-11.43) 05/24/24 16:49 RBC 3.66 10^6/uL (3.85-5.65) L 05/24/24 16:49 Hgb 11.80 g/dL (11.27-16.99) 05/24/24 16:49 Hct 36.6 % (36-47) 05/24/24 16:49 MCV 100.0 fl (85-98) H 05/24/24 16:49 MCH 32.2 pg (27-33) 05/24/24 16:49 MCHC 32.2 g/dL (30-55) 05/24/24 16:49 RDW 15.5 % (12.1-15.1) H 05/24/24 16:49 Plt Count 246 10^3/cmm (157-399) 05/24/24 16:49 MPV 9.8 fL (7.4-10.4) 05/24/24 16:49 Neut % (Auto) 62.3 % 05/24/24 16:49 Lymph % (Auto) 24.1 % 05/24/24 16:49 [place] % (Auto) 10.3 % 05/24/24 16:49 Eos % (Auto) 2.1 % 05/24/24 16:49 Baso % (Auto) 0.4 % 05/24/24 16:49 Neut # (Auto) 6.38 10^3/uL (1.8-7.7) 05/24/24 16:49 Lymph # (Auto) 2.5 10^3/uL (0.8-4.8) 05/24/24 16:49 [place] # (Auto) 1.1 10^3/uL (0.2-0.9) H 05/24/24 16:49 Eos # (Auto) 0.2 10^3/uL (0.0-0.8) 05/24/24 16:49 Baso # (Auto) 0.0 10^3/uL (0.0-0.1) 05/24/24 16:49 Nucleated RBC % (auto) 0 % 05/24/24 16:49 Nucleated RBCs # 0.0 /100WBC 05/24/24 16:49 Sodium 140 mmol/L (136-145) 05/24/24 16:49 Potassium 4.5 mmol/L (3.5-5.1) 05/24/24 16:49 Chloride 103 mmol/L (98-107) 05/24/24 16:49 Carbon Dioxide 21 mmol/L (22-29) L 05/24/24 16:49 Anion Gap 20.5 (5-19) H 05/24/24 16:49 BUN 24 mg/dL (8-23) H 05/24/24 16:49 Creatinine 1.3 mg/dL (0.5-0.9) H 05/24/24 16:49 GFR Calculation Not Reportable 05/24/24 16:49 Glucose 147 mg/dL (65-115) H 05/24/24 16:49 Calculated Osmolality 297 mOsm/kg (285-295) H 05/24/24 16:49 Calcium 10.2 mg/dL (8.5-10.5) 05/24/24 16:49 Total Bilirubin 0.8 mg/dL (0.15-1.2) 05/24/24 16:49 AST 264 U/L (0-32) H 05/24/24 16:49 ALT 248 U/L (0-33) H 05/24/24 16:49 Alkaline Phosphatase 143 U/L (35-105) H 05/24/24 16:49 Total Protein 7.2 g/dL (6.6-8.7) 05/24/24 16:49 Albumin 4.1 g/dL (3.5-5.2) 05/24/24 16:49 Globulin 3.1 g/dL (1.3-4.6) 05/24/24 16:49 All radiology interpretation(s) finalized by discharge EKG Data EKG 1: I personally reviewed and interpreted this EKG as follows: EKG interpretation date: 05/24/24 EKG interpretation time: 16:50 Prior EKG tracings: not available for review Interpretation: Patient has a EKG that shows sinus rhythm with regular rate at [address] elevation is noted no ectopy is noted. No prior exam was available for comparison. Computer generated interpretation: EKG shows a sinus rhythm, low QRS voltage in precordial leads, incomplete right bundle branch block, possible inferior myocardial infarct probably old, borderline EKG, unconfirmed report. Discharge Plan Discharge Patient Disposition: Admitted As Inpatient Clinical Impression: Closed pelvic fracture Qualifiers: Encounter type: initial encounter Pelvic bone location: pubis Fracture alignment: displaced Laterality: right Qualified Code(s): S32.501A - Unspecified fracture of right pubis, initial encounter for closed fracture Diabetes mellitus Qualifiers: Diabetes mellitus type: type 2 Diabetes mellitus usp insulin use: u nspecified usp insulin use status Diabetes mellitus complication status: w ith other specified complication Qualified Code(s): E11.69 - Type 2 diabetes mellitus with other specified complication Condition: Stable Coding Level of Care Code ED Dry Heat Room Attendant for Pushpa Gonzalez
[2024-05-24 15:48] VITALS: BP 124/75; PULSE 93; RESP 18; O2SAT 95
--- NOTE | 2024-05-24 16:26 | CTR_ITS ---
PROCEDURE INFORMATION: Exam: CT Pelvis Without Contrast, Skeleton Exam date and time: 05/24/2024 4:39 PM Age: 79 years old Clinical indication: Injury or trauma; Fall; Other: Pain; Prior surgery; Surgery date: 6+ months; Surgery type: Hip; Additional info: Fracture pelvis TECHNIQUE: Imaging protocol: Computed tomography of the pelvis without contrast. Exam focused on the skeleton. Radiation optimization: All CT scans at this facility use at least one of these dose optimization techniques: automated exposure control; mA and/or kV adjustment per patient size (includes targeted exams where dose is matched to clinical indication); or iterative reconstruction. COMPARISON: CR XR hip RT 2-3V wo/w pel* [id number] 05/24/2024 3:51 PM RADIATION DOSE METRICS: Total DLP (mGy-cm): 592 FINDINGS: Intestine: Sigmoid diverticulosis. Vasculature: Diffuse vascular calcifications extending from the visualized abdominal aorta and its branch vessels into the pelvis and lower extremities. Reproductive: Likely calcified uterine fibroids. Bones/joints: Comminuted, moderately displaced fracture of the right superior pubic ramus with approximately 1/2 shaft with inferior displacement of the more medial fragment. Comminuted, mildly displaced fracture of the right inferior pubic ramus. Advanced facet arthropathy and degenerative disc disease in the visualized lower lumbar spine. Moderate compression deformity at L5. Right intramedullary nail transfixing a remote proximal femur fracture. Hardware appears intact without complication. Moderate degenerative changes of the hips bilaterally. Diffuse osseous demineralization. Soft tissues: Mild subcutaneous fat stranding of the level of the umbilicus, possibly a contusion. CT/CT pelvis wo con [id number] IMPRESSION: 1. Comminuted, moderately displaced right superior pubic ramus fracture. 2. Comminuted, mildly displaced right inferior pubic ramus fracture. 3. Additional chronic findings as above
--- NOTE | 2024-05-24 16:26 | XR_ITS ---
WS: [id number] PORTABLE CHEST HISTORY: fall COMPARISON: 05/16/2022 No pulmonary mass or nodule. Increased density over the thorax is due to overlying soft tissue. No lo bar collapse or pneumothorax. No pleural effusion or pneumothorax. Cardiac size: Normal. Mediastinum/Aorta: Mild atherosclerosis aorta. Moderate AC joint arthritis and glenohumeral joint arthritis. High riding humeral heads. Thoracic spo ndylosis. XR/XR chest 1V portable [id number] IMPRESSION: No acute cardiopulmonary disease. Mild atherosclerosis aorta.
--- NOTE | 2024-05-24 16:33 | ECG_ITS ---
[facility] Test Date: 2024-05-24 Pat Name: Shraddha Bull Department: Room: Gender: Female Protective Service Specialist: : 1945 Requested By: Aj Aldrich Order Number: [id number] Nina MD: Marianne Moore M.D. Measurements Intervals [place] Rate: 92 P: 15 WA: 169 QRS: 45 QRSD: 119 T: 42 QT: 363 QTc: 451 Interpretive Statements SINUS RHYTHM LOW QRS VOLTAGE IN PRECORDIAL LEADS [QRS DEFLECTION < 1.0 mV IN CHEST LEADS] INCOMPLETE RIGHT BUNDLE BRANCH BLOCK [90+ ms QRS DURATION, TERMINAL R IN V1/V2, 40+ ms S IN I/aVL/V4/V5/V6] POSSIBLE INFERIOR MYOCARDIAL INFARCTION , PROBABLY OLD [30 ms Q WAVE IN II/aVF] Compared to ECG 05/16/2022 11:21:54 Low QRS voltage now present Incomplete right bundle-branch block now present Myocardial infarct finding still present Electronically Signed On 05-25-2024 0:19:32 CDT by Marianne Moore M.D. [id number]
[2024-05-24 16:54] LABS: Basophils % 0.4 %; Eosinophils # 0.2 10^3/uL (0.0-0.8); Eosinophils % 2.1 %; Hematocrit 36.6 % (36-47); Lymphocytes # 2.5 10^3/uL (0.8-4.8); Lymphocytes % 24.1 %; Mean Corpuscular HGB Conc 32.2 g/dL (30-55); Mean Corpuscular Hemoglobin 32.2 pg (27-33); Mean Platelet Volume 9.8 fL (7.4-10.4); Monocytes # 1.1 10^3/uL (0.2-0.9); Monocytes % 10.3 %; Neutrophils # 6.38 10^3/uL (1.8-7.7); Neutrophils % 62.3 %; Nucleated Red Blood Cells % 0 %; Platelet Count 246 10^3/cmm (157-399); Red Blood Count 3.66 10^6/uL (3.85-5.65); Red Cell Distribution Width 15.5 % (12.1-15.1); White Blood Count 10.22 10^3/uL (3.29-11.43)
[2024-05-24 17:18] VITALS: BP 141/59; PULSE 81; O2SAT 96
[2024-05-24 17:21] LABS: Alanine Aminotransferase 248 U/L (0-33); Albumin Level 4.1 g/dL (3.5-5.2); Alkaline Phosphatase 143 U/L (35-105); Anion Gap 20.5 (5-19); Aspartate Amino Transferase 264 U/L (0-32); Blood Urea Nitrogen 24 mg/dL (8-23); Calcium 10.2 mg/dL (8.5-10.5); Carbon Dioxide 21 mmol/L (22-29); Chloride 103 mmol/L (98-107); Creatinine Clr Calc Pharmacy 33.7602; Globulin 3.1 g/dL (1.3-4.6); Glucose 147 mg/dL (65-115); Osmolality Calculated 297 mOsm/kg (285-295); Potassium 4.5 mmol/L (3.5-5.1); Sodium 140 mmol/L (136-145); Total Bilirubin 0.8 mg/dL (0.15-1.2); Total Protein 7.2 g/dL (6.6-8.7)
[2024-05-24 18:36] VITALS: PULSE 80; O2SAT 97
--- NOTE | 2024-05-24 19:12 | PC.NURSE ---
pt changed into hospital gown. pt aware of NWB status to right leg.
--- NOTE | 2024-05-24 20:03 | P.HP_ITS ---
Providers/Chief Complaint 2 Admitting Physician: Demetris Cox Primary Care Provider: Joshua Luna MD Chief Complaint: fall (rt hip pain) History of Present Illness Pleasant 79-year-old lady with history of diabetes, right forefoot amputation, usually walks with a walker, lives in senior apartments, let go for walker to pull out some paper towels using both hands, lost her balance and fell on her right side yesterday. Subsequently with pain and difficulty with ambulation. On evaluation in ER hip and pelvis x-ray with right superior and inferior pubic ramus fractures, CT showing comminuted moderately displaced right superior pubic ramus fracture and comminuted mildly displaced right inferior pubic ramus fracture. Incidentally noted advanced degenerative disc disease, moderate compression deformity L5. Right intramedullary nail with remote proximal femur fracture. Hardware appears intact. Moderate degenerative changes of hips bilaterally. Diffuse osseous demineralization. Review of Systems 2 Const: Denies: fever(s), chills, body aches or malaise ENMT: Denies: throat pain Card: Denies: chest pain, edema, pre-syncope or dyspnea on exertion Resp: Denies: dyspnea, productive cough, change in phlegm color or hemoptysis GI: Denies: abdominal pain, nausea, vomiting, diarrhea, constipation, hematochezia or melena : Denies: flank pain, urinary frequency or hematuria Musc: Reports: other (Pain on walking R pelvis); Denies: back pain, joint swelling or joint redness Skin/Breast: Denies: rash or new lesions Neuro: Denies: headache(s), dizziness or confusion Endo: Denies: polyuria or polydipsia Medications/Allergies Home Medications Medication Instructions Recorded Confirmed Last Taken Type allopurinol 300 mg tablet 300 mg PO DAILY 12/09/20 07/05/23 12/09/20 History ascorbic acid (vitamin C) 500 mg 500 mg PO DAILY 12/09/20 07/05/23 12/09/20 History tablet (Vitamin C) atorvastatin 20 mg tablet 20 mg PO DAILY 12/09/20 07/05/23 12/08/20 History carvedilol 3.125 mg tablet 3.125 mg PO BID 12/09/20 07/05/23 12/09/20 History chromium 100 mcg tablet 100 mcg PO DAILY 12/09/20 07/05/2312/09/21 History chromium 200 mcg-brindal hagen 500 1 tab PO DAILY 12/09/20 07/05/23 12/09/20 History mg tablet (Garcalbino Acostaia) lisinopril 5 mg tablet 5 mg PO DAILY 12/09/20 07/05/23 12/09/20 History metformin 500 mg tablet,extended 1,000 mg PO DAILY 12/09/20 07/05/23 Unknown History release 24 hr prednisone 20 mg tablet 40 mg (2 x 20 mg) PO DAILY 3 days 07/05/23 07/05/23 Unknown Rx #6 tabs Allergies Allergy/AdvReac Type Severity Reaction Status Date / Time aspirin Allergy Severe ALGY-Anaphy Verified 07/05/23 09:01 laxis Penicillins Allergy Severe ALGY-Anaphy Verified 07/05/23 09:01 laxis ibuprofen Allergy Mild ADR-Nausea Verified 07/05/23 09:01 morphine Allergy Mild ADR-Vomitin Verified 07/05/23 09:01 g PFSH Acute 2 PFSH: Medical History Amputation of right forefoot Diabetes mellitus Social History Substance/Drug Use: never Vitals/I&O/Wt Last Vital Signs Temp 98.1 F 05/24/24 15:14 Pulse 80 05/24/24 18:36 Resp 18 05/24/24 15:48 BP 141/59 05/24/24 17:18 Pulse Ox 97 05/24/24 18:36 O2 Del Method Room Air 05/24/24 18:36 Weight last 48 hrs Weight 78.925 kg Physical Exam 2 Narrative: Sitting up in wheelchair. Const: COMMON NORMALS: patient oriented x3 and alert GENERAL APPEARANCE: c ooperative ORIENTATION/CONSCIOUSNESS: Yes awake HENMT: COMMON NORMALS: oropharynx normal Neck/C-Spine: COMMON NORMALS: no JVD Resp: COMMON NORMALS: normal respiratory effort and clear to auscultation bilaterally AUSCULTATION: clear to auscultation bilaterally Cardio: COMMON NORMALS: no JVD, regular rhythm, S1 normal heart sound present, S2 normal heart sound present and No murmurs present (Cardio) RHYTHM: regular rhythm HEART SOUNDS: S1 normal heart sound present and S2 normal heart sound present GI: COMMON NORMALS: Normal to inspection, nondistended, normoactive bowel sounds present, Soft to palpation and non-tender PALPATION: Yes Soft to palpation Extremity: COMMON NORMALS: no joint enlargement GENERAL: Yes edema (Trace) Neuro: COMMON NORMALS: patient oriented x3 and moves all extremities S ENSORIUM/ORIENTATION: Yes alert Skin: COMMON NORMALS: no rashes or lesions noted GENERAL SKIN EXAM: no rashes or lesions noted Data 05/24/24 16:49 05/24/24 16:49 A&P Assessment and plan (1) Multiple pelvic fractures: Loss of balance after taking her hands off her walker and trying to pull out some paper towels at [facility] apartment. Fell on the right side. Pain and difficulty with walking. Finding of comminuted moderately displaced right superior pubic ramus fracture as well as comminuted mildly displaced right inferior pubic ramus fracture. Reviewed CT, reviewed vitals, CBC, CMP, hip x- ray, chest x-ray, ER note, discussed with ER provider. EKG on my interpretation with incomplete RBBB, noted small Q waves in 3 and aVF. Pending official interpretation. Orthopedic surgery had been consulted in ER, pending additional recommendations. Nonweightbearing on right lower extremity. Up with assistance. Fall precautions. Discussed with her with several pelvic fractures she is at risk of potential severe or life-threatening blood loss anemia, hematoma, she is not on any blood thinners, not on aspirin. Follow-up blood counts requested. She declines physical therapy assessment at current time on discussion, states that it is not covered by her insurance and that her Medicaid previously gave her a bill of $3200 after a 10-minute PT assessment while in the hospital. Requesting case management assessment as she would benefit from physical therapy given multiple fractures, discussed with her concern of ability to regain independent ambulation without therapy. She states that she has a wheelchair. She states that she is not really interested in going to a nursing facility, she states that her is at [facility] and they have 4 men going to the same bathroom in which a to find out how the situation is for women. Please visit with case management regarding possibilities for rehabilitation for her, regarding coverage for physical therapy in case of pelvic fracture and revisit with her. Otherwise Tylenol for pain. She declines anything stronger. SCDs only for VTE prophylaxis with risk of bleeding, hematoma. Fall precautions. Unclear cause of transaminitis, possible rhabdo? Will check CK. (2) Diabetes mellitus: Usually on metformin. Hold metformin while in the hospital. Low-dose sliding scale insulin. Consistent carb diet. Monitor POC glucose. Qualifiers: Diabetes mellitus complication status: with other specified complication Diabetes mellitus care home insulin use: unspecified care home insulin use status Diabetes mellitus type: type 2 Qualified Code(s): E11.69 - Type 2 diabetes mellitus with other specified complication (3) CKD (chronic kidney disease): Creatinine appears close to baseline. (4) Transaminitis: Possible rhabdomyolysis after fall? Check CK. Hold statin and allopurinol. Check hepatitis panel. Check INR. Follow-up CMP requested. Also with alk phos elevation, possibly secondary to fractures. Check GGT. At current time no abdominal pain, no tenderness on palpation. T. bili is normal. (5) Compression fracture of L5 vertebra: Incidentally noted on CT. (6) Osteoporosis: Fragility fractures as above with noted diffuse osseous demineralization on CT. Will benefit from further follow up and treatment of osteoporosis and diabetes. Would also benefit from rehabilitation. Please revisit with her. Will intiate with vitamin D level. PTH. Phosphorus. Magnesium. Plan Prior right femoral fracture and repair: Hardware appears intact on CT. Attestations 2 Medical Necessity Statement*: Admission of over 2 midnights anticipated of multiple traumas with complicated pelvic fractures of both superior and inferior pubic rami with comminution, displacement, at risk of acute blood loss anemia, hematoma, at risk of deconditioning, functional decline and complications, assessment of new transaminitis, and High MDM includes number and complexity of problems actively addressed during encounter and amount and/or complexity of data reviewed/ordered [ previous or external records, resulted lab(s)/test(s), ordered lab(s)/test(s), independent test interpretation and other healthcare professional discussion] as documented Diagnoses Multiple pelvic fractures S32.82XA Diabetes mellitus E11.69 Diabetes mellitus complication status: with other specified complication 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
--- NOTE | 2024-05-24 20:11 | PC.NURSE ---
report called to Evelia at 2011. med surg.
[2024-05-24 20:45] VITALS: BP 137/55; PULSE 96; RESP 90; TEMP 36.7; O2SAT 95
[2024-05-24 20:47] VITALS: BMI 29.0
[2024-05-24 21:24] LABS: Glucose Point of Care 192 mg/dL (70-110)
[2024-05-24 21:41] LABS: Creatine Phosphokinase 56 U/L (26-192); Magnesium 1.2 mg/dL (1.7-2.3); Phosphorus 4.3 mg/dL (2.5-4.5)
[2024-05-24 22:00] LABS: Gamma Glutamyl Transferase 321 U/L (5-36)
[2024-05-24] MEDS: insulin lispro 100 unit/1 mL SUBCUT (22:02)
[2024-05-24 23:36] LABS: 25 Hydroxy Vitamin D > 120 ng/mL (30-100)
[2024-05-25] VITALS: BP 144/80; PULSE 93; RESP 20; TEMP 36.7; O2SAT 97
[2024-05-25 04:00] VITALS: BP 157/72; PULSE 95; RESP 20; TEMP 36.8; O2SAT 94
[2024-05-25 05:15] LABS: Basophils % 0.4 %; Eosinophils # 0.2 10^3/uL (0.0-0.8); Eosinophils % 2.3 %; Hematocrit 35.7 % (36-47); Lymphocytes # 2.2 10^3/uL (0.8-4.8); Lymphocytes % 24.1 %; Mean Corpuscular HGB Conc 31.9 g/dL (30-55); Mean Corpuscular Volume 100.3 fl (85-98); Mean Platelet Volume 10.7 fL (7.4-10.4); Monocytes # 1.1 10^3/uL (0.2-0.9); Monocytes % 11.7 %; Neutrophils # 5.49 10^3/uL (1.8-7.7); Neutrophils % 60.6 %; Nucleated Red Blood Cells % 0 %; Platelet Count 249 10^3/cmm (157-399); Red Blood Count 3.56 10^6/uL (3.85-5.65); Red Cell Distribution Width 15.2 % (12.1-15.1); White Blood Count 9.07 10^3/uL (3.29-11.43)
[2024-05-25 05:32] LABS: INR 0.92 (0.8-1.2)
[2024-05-25 05:39] LABS: Albumin Level 3.7 g/dL (3.5-5.2); Alkaline Phosphatase 125 U/L (35-105); Blood Urea Nitrogen 24 mg/dL (8-23); Carbon Dioxide 17 mmol/L (22-29); Chloride 103 mmol/L (98-107); Globulin 3.4 g/dL (1.3-4.6); Glucose 140 mg/dL (65-115); Osmolality Calculated 292 mOsm/kg (285-295); Sodium 138 mmol/L (136-145); Total Bilirubin 1.1 mg/dL (0.15-1.2); Total Protein 7.1 g/dL (6.6-8.7)
[2024-05-25 05:41] LABS: Alanine Aminotransferase 193 U/L (0-33); Anion Gap 22.4 (5-19); Aspartate Amino Transferase 171 U/L (0-32); Potassium 4.4 mmol/L (3.5-5.1)
[2024-05-25 05:45] LABS: Slide Review Slide Review Perform
[2024-05-25 05:54] LABS: Parathyroid Hormone 9.8 pg/mL (15-65)
[2024-05-25 05:57] LABS: Hepatitis A Antibody IgM Non-Reactive (Nonreactive); Hepatitis B Core IgM Non-Reactive (Nonreactive); Hepatitis B Surface Antigen Non-Reactive (Nonreactive); Hepatitis C Virus Antibody Non-Reactive (Nonreactive)
[2024-05-25 06:34] LABS: Glucose Point of Care 148 mg/dL (70-110)
[2024-05-25 07:42] VITALS: BP 187/92; PULSE 98; RESP 15; TEMP 36.7; O2SAT 95
[2024-05-25] MEDS: insulin lispro 100 unit/1 mL SUBCUT (08:01)
--- NOTE | 2024-05-25 08:45 | US_ITS ---
WS: [id number] RIGHT UPPER QUADRANT ULTRASOUND HISTORY: transaminitis COMPARISON: None available. Liver: 14.3 cm in length. Liver is normal size. Heterogeneous appearance of the liver. No mass or rufus e duct dilatation is identified. Heterogeneity is probably related to rib shadowing and focal fatty s paring. Portal Vein: Normal hepatopetal flow with monophasic waveform. Gallbladder: Normally distended. There is a single stone noted in at the neck of the gallbladder. No pericholecystic fluid. CBD: 0.4 cm Pancreas: Completely obscured by bowel gas. Right kidney: 9.5 cm in length. RIGHT kidney is poorly visualized. No hydronephrosis. There is a hypo echoic mass extending posterior from the upper pole. Mass measures 4.1 x 4.3 x 4.1 cm. This cannot be determined as a pure cyst on the imaging submitted. There are low level echoes throughout. Aorta and IVC: Unremarkable abdominal aorta and IVC. No ascites. US/US gall bladder [id number] IMPRESSION: 1. Cholelithiasis. Single stone in the gallbladder neck. No evidence for acute cholecystitis. 2. Heterogeneous liver with changes of hepatic steatosis and sparing. 3. Low-attenuation mass in the superior pole RIGHT kidney. This may be a cyst or cystic neoplasm. Mass measures 4.1 x 4.3 x 4.[address] cm. [address] renal mass CT pr otocol for confirmation cyst versus solid.
[2024-05-25] MEDS: lactated ringers 1,000 ML 75 ML IV (09:02)
[2024-05-25] MEDS: carvedilol 3.125 mg Tablet PO (09:02)
[2024-05-25 09:03] LABS: Estmated Average Glucose 160; Hemoglobin A1C 7.2 % (4.0-6.0)
[2024-05-25 09:33] LABS: Iron 34 ug/dL (37-145); Thyroid Stimulating Hormone 3.08 uIU/mL (0.27-4.20); Vitamin B12 541 pg/mL (232-1245)
[2024-05-25 09:48] LABS: Percent Saturation 12.5 % (20-50); Total Iron Binding Capacity 270 mcg/dl; Unsaturated Iron Binding 236 ug/dL (112-347)
[2024-05-25 11:07] VITALS: BP 194/78; PULSE 101; RESP 16; TEMP 36.6; O2SAT 92
--- NOTE | 2024-05-25 11:43 | P.CONIM_ITS ---
<Statement entered by Casey Blake DO - 06/05/24 22:41> Agree with PAs assessment and plan. Patient was not seen evaluated by me prior to discharge. She did have post ambulatory x-rays which were reviewed which state: XR/XR pelvis min 3V [id number] Impression: 1. Fractures of the inferior and superior right pubic rami remain in the same position. 2. Stable right hip intertrochanteric fracture internal fixation. Also a CT of the abdomen and pelvis were done which was after ambulation listed below: CT/CT abdomen pelvis wo con [id number] IMPRESSION: 1. Focal fullness along the right lateral renal cortex is isodense to the surrounding renal parenchyma and is likely related to normal renal cortex which appears mildly atrophic but otherwise unremarkable. If patient's renal function improves, CT or MRI with contrast could be considered for further evaluation of underlying renal lesions. 2. 4.8 cm right renal simple appearing cysts. 3. Similar right superior and inferior pubic rami fractures. 4. Similar moderate L5 compression deformity. 5. Cholelithiasis. At this point in time patient has a stable right superior and inferior pubic rami fracture consistent with a stable pelvic ring injury. This point time would recommend nonoperative treatment. At this point in time patient, may be weightbearing as tolerated to the right lower extremity. Would recommend vitamin D calcium supplementation PT/OT as well as DVT prophylaxis per the hospitalist team. Recommend follow-up with the patient with the orthopedic office in 2 weeks upon discharge. Casey Blake DO Orthopedic surgery Providers/Reason For Consult 2 Consulting Physician/Specialty*: Dr. Lou DO/orthopedic surgeon Reason for Consult*: Pelvic fractures Requesting Physician: Dr. Lemons/emergency department Attending Physician: Npaoleon Pompa MD Primary Care Provider: Joshua Luna MD History of Present Illness History of Present Illness Pleasant 79-year-old lady with history of diabetes, right forefoot amputation, usually walks with a walker, lives in senior apartments, let go for walker to pull out some paper towels using both hands, lost her balance and fell on her right side yesterday. Since fall she has been having pain with ambulation and weightbearing. Pain is located in right hip area. Patient went to the emergency department for evaluation. xrays were obtained of hip and pelvis x- ray with right superior and inferior pubic ramus fractures, CT showing comminuted moderately displaced right superior pubic ramus fracture and comminuted mildly displaced right inferior pubic ramus fracture. Patient is not on any blood thinners. Review of Systems 2 General: Reports: 10 or more systems reviewed and unremarkable except in HPI and below Musc: Reports: extremity pain (Right hip) and joint pain (Right hip) Medications/Allergies Home Medications Medication Instructions Recorded Confirmed Last Taken Type allopurinol 300 mg tablet 300 mg PO DAILY 12/09/20 05/25/24 05/24/24 History ascorbic acid (vitamin C) 500 mg 500 mg PO DAILY 12/09/20 05/25/24 05/24/24 History tablet (Vitamin C) atorvastatin 20 mg tablet 20 mg PO QAM 12/09/20 05/25/24 05/24/24 History carvedilol 3.125 mg tablet 3.125 mg PO BID 12/09/20 05/25/24 05/24/24 History cetirizine 10 mg tablet 10 mg PO DAILY 05/25/24 05/25/24 05/24/24 History chromium picolinate 200 mcg tablet 200 mcg PO DAILY 05/25/24 05/25/24 05/24/24 History dapagliflozin propanediol 10 mg 10 mg PO DAILY 05/25/24 05/25/24 05/24/24 History tablet (Farxiga) dulaglutide 0.75 mg/0.5 mL 0.75 mg SUBCUT Q7D 05/25/24 05/25/24 05/24/24 History subcutaneous pen injector ([facility]) Allergies Allergy/AdvReac Type Severity Reaction Status Date / Time aspirin Allergy Severe ALGY-Anaphy Verified 07/05/23 09:01 laxis Penicillins Allergy Severe ALGY-Anaphy Verified 07/05/23 09:01 laxis ibuprofen Allergy Mild ADR-Nausea Verified 07/05/23 09:01 morphine Allergy Mild ADR-Vomitin Verified 07/05/23 09:01 g Current Medications Generic Name Dose Route Start Last Admin Trade Name Freq PRN Reason Stop Dose Admin Carvedilol 3.125 mg 05/25/24 09:00 05/25/24 09:02 Carvedilol 3.125 Mg Tablet PO 3.125 mg BID JAMAR Administration Lactated Ringer's 1,000 mls @ 75 mls/hr 05/25/24 09:00 05/25/24 09:02 Lactated Ringers IV 05/25/24 22:19 75 mls/hr .[id number] JAMAR Administration Insulin Human Lispro 0 unit 05/24/24 21:00 05/25/24 11:35 Insulin Lispro 100 Unit/1 Ml SUBCUT Not Given WM&BEDTIME JAMAR Protocol PFSH Acute 2 PFSH: Medical History Amputation of right forefoot Diabetes mellitus Social History Substance/Drug Use: never Vitals/I&O/Wt Last Vital Signs Temp 98.1 F 05/25/24 07:42 Pulse 98 05/25/24 07:42 Resp 15 05/25/24 07:42 BP 187/92 05/25/24 07:42 Pulse Ox 95 05/25/24 07:42 O2 Del Method Room Air 05/25/24 07:42 05/24/24 05/25/24 05/25/24 22:59 06:59 14:59 Intake Total 250 / 250 480 / 480 Balance 250 / 250 480 / 480 Weight last 48 hrs Weight 164 lb Weight 164 lb Weight 174 lb Physical Exam 2 Narrative: Right lower extremity-no visible deformity noted. Patient does have right forefoot amputation. Negative logroll test. Tenderness to palpation right hip. compartments are soft and compressible. Patient able perform straight leg raise and can dorsiflex and plantarflex foot. Toes are warm and well-perfused. Pedal pulse 2+. Secondary assessment of other extremities. Upper extremities-no visible injuries, abrasions. Full range of motion in shoulders, elbows and wrist. no tenderness to palpation of shoulders or wrist. Left lower extremity-no visible injury or trauma seen. Full range of motion in hip. Negative logroll test. Patient able to perform straight leg raise and can dorsiflex plantarflex foot. Pedal pulse 2+ and patient can wiggle toes. Const: COMMON NORMALS: no acute distress and alert Resp: COMMON NORMALS: normal respiratory effort and No retractions Cardio: COMMON NORMALS: Peripheral pulses 2+ throughout PERIPHERAL PULSES: Peripheral pulses 2+ throughout Neuro: SENSORIUM/ORIENTATION: Yes alert Skin: GENERAL SKIN EXAM: dry skin Data 05/25/24 04:10 05/25/24 04:[address]: Radiologist's impression: Patient: Shraddha Bull Unit #: [id number] : 1945 Age/Sex: 79 / F ADM Date: 05/24/24 Loc: ER Room/Bed: Attending Dr: Ordering Provider/Ordering MD: Aj Stone NP Date of Service: 05/24/24 Procedure(s): CT pelvis wo con [id number] Accession Number(s): [id number] Report Number: [id number] PROCEDURE INFORMATION: Exam: CT Pelvis Without Contrast, Skeleton Exam date and time: 05/24/2024 4:39 PM Age: 79 years old Clinical indication: Injury or trauma; Fall; Other: Pain; Prior surgery; Surgery date: 6+ months; Surgery type: Hip; Additional info: Fracture pelvis TECHNIQUE: Imaging protocol: Computed tomography of the pelvis without contrast. Exam focused on the skeleton. Radiation optimization: All CT scans at this facility use at least one of these dose optimization techniques: automated exposure control; mA and/or kV adjustment per patient size (includes targeted exams where dose is matched to clinical indication); or iterative reconstruction. COMPARISON: CR XR hip RT 2-3V wo/w pel* [id number] 05/24/2024 3:51 PM RADIATION DOSE METRICS: Total DLP (mGy-cm): 592 FINDINGS: Intestine: Sigmoid diverticulosis. Vasculature: Diffuse vascular calcifications extending from the visualized abdominal aorta and its branch vessels into the pelvis and lower extremities. Reproductive: Likely calcified uterine fibroids. Bones/joints: Comminuted, moderately displaced fracture of the right superior pubic ramus with approximately 1/2 shaft with inferior displacement of the more medial fragment. Comminuted, mildly displaced fracture of the right inferior pubic ramus. Advanced facet arthropathy and degenerative disc disease in the visualized lower lumbar spine. Moderate compression deformity at L5. Right intramedullary nail transfixing a remote proximal femur fracture. Hardware appears intact without complication. Moderate degenerative changes of the hips bilaterally. Diffuse osseous demineralization. Soft tissues: Mild subcutaneous fat stranding of the level of the umbilicus, possibly a contusion. CT/CT pelvis wo con [id number] IMPRESSION: 1. Comminuted, moderately displaced right superior pubic ramus fracture. 2. Comminuted, mildly displaced right inferior pubic ramus fracture. 3. Additional chronic findings as above Dictated By: Yury Ingram MD Xray Ortho: Radiologist's impression: Patient: Shraddha Bull Unit #: [id number] : 1945 Age/Sex: 79 / F ADM Date: 05/24/24 Loc: ER Room/Bed: Attending Dr: Ordering Provider/Ordering MD: Shirley Palma MD Date of Service: 05/24/24 Procedure(s): XR hip RT 2-3V wo/w pel* [id number] Accession Number(s): [id number] Report Number: [id number] PROCEDURE INFORMATION: Exam: XR Right Hip Exam date and time: 05/24/2024 3:51 PM Age: 79 years old Clinical indication: Injury or trauma; Fall; Blunt trauma (contusions or hematomas); Injury date: 2 days ago; Prior surgery; Surgery date: 6+ months; Surgery type: Right hip im TECHNIQUE: Imaging protocol: Radiologic exam of the right hip. Views: 1 view hip with pelvis when performed. COMPARISON: CR XR hip RT 2-3V wo/w pel* [id number] 05/16/2022 9:53 AM FINDINGS: Bones/joints: Redemonstrated intramedullary nail placement transfixing a remote proximal right hip fracture. Hardware appears intact without complication. No dislocation. Suspected mildly displaced fracture of the right superior pubic ramus and nondisplaced fracture of the right inferior pubic ramus Moderate degenerative changes of the right hip with joint space narrowing and subarticular sclerosis. Moderate to advanced degenerative changes of the left hip. Soft tissues: Unremarkable. Vasculature: Vascular calcifications. XR/XR hip RT 2-3V wo/w pel* [id number] IMPRESSION: 1. Suspected mildly displaced right superior pubic ramus fracture and nondisplaced right inferior pubic ramus fracture. 2. Chronic findings as above are similar to prior. Dictated By: Yury Ingram MD A&P Assessment and plan (1) Multiple pelvic fractures: Plan Plan: -Hospitalist managing pt care - labs and imaging reviewed - Post Ambulatory x-ray -Pain control -Weight-bear as tolerated. -PT/OT -Vitamin D, calcium -VTE prophylaxis per hospitalist Patient has a nonoperative pelvic fractures and pt needs a post ambulatory xrays. Any questions pertaining patient care feel free to contact orthopedics. Coding Level of Care Code Acute Code for [facility] [place] Fwd Diagnoses Multiple pelvic fractures S32.82XA
[2024-05-25 12:14] VITALS: BP 143/80
[2024-05-25 12:35] LABS: Glucose Point of Care 153 mg/dL (70-110)
--- NOTE | 2024-05-25 13:10 | P.DS_ITS ---
Discharge Providers Date of Admission: 05/24/24 19:52 Date of Discharge: May 25, 2024 Attending Provider at Admission: Demetris Cox Attending Provider at Discharge: Napoleon Pompa MD Primary Care Provider: Joshua Luna MD Diagnoses at Discharge Discharge Diagnosis (1) Multiple pelvic fractures: Status: Acute (2) CKD (chronic kidney disease): Status: Chronic (3) Transaminitis: Status: Acute (4) Vitamin D toxicity: Status: Acute (5) Diabetes mellitus: Status: Acute Qualifiers: Diabetes mellitus complication status: with other specified complication Diabetes mellitus nursing home insulin use: unspecified exterminator insulin use status Diabetes mellitus type: type 2 Qualified Code(s): E11.69 - Type 2 diabetes mellitus with other specified complication (6) Osteoporosis: Status: Acute Reason for Visit Reason for Visit: fall (rt hip pain) Brief History: History as per HPI: Pleasant 79-year-old lady with history of diabetes, right forefoot amputation, usually walks with a walker, lives in senior apartments, let go for walker to pull out some paper towels using both hands, lost her balance and fell on her right side yesterday. Subsequently with pain and difficulty with ambulation. On evaluation in ER hip and pelvis x-ray with right superior and inferior pubic ramus fractures, CT showing comminuted moderately displaced right superior pubic ramus fracture and comminuted mildly displaced right inferior pubic ramus fracture. Incidentally noted advanced degenerative disc disease, moderate compression deformity L5. Right intramedullary nail with remote proximal femur fracture. Hardware appears intact. Moderate degenerative changes of hips bilaterally. Diffuse osseous demineralization. Hospital Course Hospital Course Patient was admitted to the hospital for further evaluation and management of pelvic fracture. Orthopedic were consulted who recommended patient to have conservative treatment with pain management and physical therapy. During hospitalization patient did not require any narcotic pain medications. Safe discharge planning with possible discharge to SNF versus home with home health were discussed in detail with the patient. She declined both home health and SNF. She stated she is at baseline extremely active and would want to continue with physical therapy by herself. At baseline she states she is bound to wheelchair currently. Further workup for frail bones were done which showed patient having excessive vitamin D levels, low PTH level. She has been discharged in hemodynamically stable condition back home with advised to follow-up with a primary care provider within next 1 week. She should have repeat CMP for transaminitis, further workup of excessive vitamin D levels. Patient is advised to adhere to the physical therapy recommendations. Physical Exam Narrative: Sitting up in wheelchair. Const: COMMON NORMALS: patient oriented x3 and alert GENERAL APPEARANCE: cooperative ORIENTATION/CONSCIOUSNESS: Yes awake HENMT: COMMON NORMALS: oropharynx normal Neck/C-Spine: COMMON NORMALS: no JVD Resp: COMMON NORMALS: normal respiratory effort and clear to auscultation bilaterally AUSCULTATION: clear to auscultation bilaterally Cardio: COMMON NORMALS: no JVD, regular rhythm, S1 normal heart sound present, S2 normal heart sound present and No murmurs present (Cardio) RHYTHM: regular rhythm HEART SOUNDS: S1 normal heart sound present and S2 normal heart sound present GI: COMMON NORMALS: Normal to inspection, nondistended, normoactive bowel sounds present, Soft to palpation and non-tender PALPATION: Yes Soft to palpation Extremity: COMMON NORMALS: no joint enlargement GENERAL: Yes edema (Trace) Neuro: COMMON NORMALS: patient oriented x3 and moves all extremities SENSORIUM/ORIENTATION: Yes alert Skin: COMMON NORMALS: no rashes or lesions noted GENERAL SKIN EXAM: no rashes or lesions noted Discharge Data Studies Completed and Pending Completed Studies During Hospitalization Category Date Time Status CT pelvis wo con [id number] Stat Cat Scan 05/24/24 16:26 Completed XR chest 1V portable [id number] Stat Exams 05/24/24 16:26 Completed XR hip RT 2-3V wo/w pel* [id number] Stat Exams 05/24/24 14:57 Completed Pending at discharge Category Date Time Status Complete Blood Count w/Auto AM LABS Lab 05/26/24 04:00 Ordered Complete Blood Count w/Auto AM LABS Lab 05/27/24 04:00 Ordered Comprehensive Metabolic Panel AM LABS Lab 05/26/24 04:00 Ordered Comprehensive Metabolic Panel AM LABS Lab 05/27/24 04:00 Ordered Folate Level AM LABS Lab 05/26/24 04:00 Ordered Lipid Profile w/VLDL Routine Lab 05/26/24 04:00 Ordered MAG [Magnesium] AM LABS Lab 05/26/24 04:00 Ordered MAG [Magnesium] AM LABS Lab 05/27/24 04:00 Ordered MAG [Magnesium] AM LABS Lab 05/28/24 04:00 Ordered Vitamin D 1,25 Dihydroxy Routine Lab 05/25/24 04:10 Received US gall bladder [id number] Routine Ultrasound 05/25/24 08:45 Ordered Radiology Impressions Hip/Pelvis X-Ray 05/24/24 14:57 IMPRESSION: 1. Suspected mildly displaced right superior pubic ramus fracture and nondisplaced right inferior pubic ramus fracture. 2. Chronic findings as above are similar to prior. Chest X-Ray 05/24/24 16:26 IMPRESSION: No acute cardiopulmonary disease. Mild atherosclerosis aorta. Pelvis CT 05/24/24 16:26 IMPRESSION: 1. Comminuted, moderately displaced right superior pubic ramus fracture. 2. Comminuted, mildly displaced right inferior pubic ramus fracture. 3. Additional chronic findings as above Laboratory Results WBC 9.07 10^3/uL (3.29-11.43) 05/25/24 04:10 RBC 3.56 10^6/uL (3.85-5.65) L 05/25/24 04:10 Hgb 11.40 g/dL (11.27-16.99) 05/25/24 04:10 Hct 35.7 % (36-47) L 05/25/24 04:10 MCV 100.3 fl (85-98) H 05/25/24 04:10 MCH 32.0 pg (27-33) 05/25/24 04:10 MCHC 31.9 g/dL (30-55) 05/25/24 04:10 RDW 15.2 % (12.1-15.1) H 05/25/24 04:10 Plt Count 249 10^3/cmm (157-399) 05/25/24 04:10 MPV 10.7 fL (7.4-10.4) H 05/25/24 04:10 Neut % (Auto) 60.6 % 05/25/24 04:10 Lymph % (Auto) 24.1 % 05/25/24 04:10 [place] % (Auto) 11.7 % 05/25/24 04:10 Eos % (Auto) 2.3 % 05/25/24 04:10 Baso % (Auto) 0.4 % 05/25/24 04:10 Neut # (Auto) 5.49 10^3/uL (1.8-7.7) 05/25/24 04:10 Lymph # (Auto) 2.2 10^3/uL (0.8-4.8) 05/25/24 04:10 [place] # (Auto) 1.1 10^3/uL (0.2-0.9) H 05/25/24 04:10 Eos # (Auto) 0.2 10^3/uL (0.0-0.8) 05/25/24 04:10 Baso # (Auto) 0.0 10^3/uL (0.0-0.1) 05/25/24 04:10 Nucleated RBC % (auto) 0 % 05/25/24 04:10 Nucleated RBCs # 0.0 /100WBC 05/25/24 04:10 PT 12.70 SECONDS (12.1-14.9) 05/25/24 04:10 INR 0.92 (0.8-1.2) 05/25/24 04:10 Sodium 138 mmol/L (136-145) 05/25/24 04:10 Potassium 4.4 mmol/L (3.5-5.1) 05/25/24 04:10 Chloride 103 mmol/L (98-107) 05/25/24 04:10 Carbon Dioxide 17 mmol/L (22-29) L 05/25/24 04:10 Anion Gap 22.4 (5-19) H 05/25/24 04:10 BUN 24 mg/dL (8-23) H 05/25/24 04:10 Creatinine 1.3 mg/dL (0.5-0.9) H 05/25/24 04:10 GFR Calculation Not Reportable 05/25/24 04:10 Glucose 140 mg/dL (65-115) H 05/25/24 04:10 POC Glucose 153 mg/dL (70-110) H 05/25/24 11:11 Estimat Average Glucose 160 05/25/24 04:10 Hemoglobin A1c 7.2 % (4.0-6.0) H 05/25/24 04:10 Calculated Osmolality 292 mOsm/kg (285-295) 05/25/24 04:10 Calcium 10.0 mg/dL (8.5-10.5) 05/25/24 04:10 Phosphorus 4.3 mg/dL (2.5-4.5) 05/24/24 16:49 Magnesium 1.2 mg/dL (1.7-2.3) L 05/24/24 16:49 Iron 34 ug/dL (37-145) L 05/25/24 04:10 TIBC 270 mcg/dl 05/25/24 04:10 % Saturation 12.5 % (20-50) L 05/25/24 04:10 Unsat Iron Binding 236 ug/dL (112-347) 05/25/24 04:10 Total Bilirubin 1.1 mg/dL (0.15-1.2) 05/25/24 04:10 GGT 321 U/L (5-36) H 05/24/24 16:49 AST 171 U/L (0-32) H 05/25/24 04:10 ALT 193 U/L (0-33) H 05/25/24 04:10 Alkaline Phosphatase 125 U/L (35-105) H 05/25/24 04:10 Creatine Kinase 56 U/L (26-192) 05/24/24 16:49 Total Protein 7.1 g/dL (6.6-8.7) 05/25/24 04:10 Albumin 3.7 g/dL (3.5-5.2) 05/25/24 04:10 Globulin 3.4 g/dL (1.3-4.6) 05/25/24 04:10 Vitamin B12 541 pg/mL (232-1245) 05/25/24 04:10 25-OH Vitamin D Total > 120 ng/mL (30-100) H* 05/24/24 16:49 TSH 3.08 uIU/mL (0.27-4.20) 05/25/24 04:10 PTH Intact 9.8 pg/mL (15-65) L 05/25/24 04:10 Calcium (PTH Intact) 10.0 mg/dL (8.5-10.5) 05/25/24 04:10 Hepatitis A IgM Ab Non-reactive (Nonreactive) 05/25/24 04:10 Hep Bs Antigen Non-reactive (Nonreactive) 05/25/24 04:10 Hep B Core IgM Ab Non-reactive (Nonreactive) 05/25/24 04:10 Hepatitis C Antibody Non-reactive (Nonreactive) 05/25/24 04:10 Vitals Last Vital Signs Temp 97.8 F 05/25/24 11:07 Pulse 101 H 05/25/24 11:07 Resp 16 05/25/24 11:07 BP 143/80 05/25/24 12:14 Pulse Ox 92 05/25/24 11:07 O2 Del Method Room Air 05/25/24 11:07 Discharge Plan Discharge Patient Disposition: Home Condition: Stable Prescriptions: No Action atorvastatin 20 mg tablet 20 mg PO QAM carvedilol 3.125 mg tablet 3.125 mg PO BID ascorbic acid (vitamin C) [Vitamin C] 500 mg Tablet 500 mg PO DAILY allopurinol 300 mg tablet 300 mg PO DAILY metformin 500 mg tablet extended release 24 hr 1,000 mg PO DAILY cetirizine 10 mg tablet 10 mg PO DAILY chromium picolinate 200 mcg Tablet 200 mcg PO DAILY Farxiga 10 mg tablet 10 mg PO DAILY Trulicity 0.75 mg/0.5 mL pen injector 0.75 mg SUBCUT Q7D Rx Instructions: on Wednesday Discharge Orders: Discharge Order (Routine); Ordered 05/25/24 Ordered By: Napoleon Pompa Other Ambulatory Orders: DME: Donn (Order) Location: None Selected Ordered By: Napoleon Pompa Referrals: Joshua Luna MD [Primary Care Provider] - 05/31/24 11:00 am Discharge Diet: Diabetic Discharge Activity: Resume usual activity and Increase activity as tolerated Patient Instructions: Pelvic Avulsion Fractures in Adults (DC), Opioid Safety Activity Restrictions/Additional Instructions: Follow-up with a primary care provider within next 1 week to 10 days. You should have a further workup regarding excessive vitamin D levels. Recheck CMP in next 1 week. Please continue to increase your physical therapy as per physical therapy guidelines. Discharge Attestations Time Spent in Discharge Care*: greater than 30 min Specific Discharge Activities: educating patient, discussing with pcp/other providers, discussing with high risk case manager/social workers/dc planners, documenting/other paperwork and evaluating patient/reviewing data Status at Discharge: Cognitive status at discharge: cognitively intact , Behavioral status at discharge: cooperative , Functional status at discharge: wheelchair bound , Overall status at discharge: patient is not back to baseline Quality Metrics Clinical Quality Measures [ No reported AMI, CVA or VTE this stay] Coding Level of Care Code 92339 Total time (in minutes) for Discharge: 60 Diagnoses Multiple pelvic fractures S32.82XA CKD (chronic kidney disease) N18.9 Transaminitis R74.01 Vitamin D toxicity T45.2X1A Diabetes mellitus E11.69 Diabetes mellitus complication status: with other specified complication Diabetes mellitus exterminator insulin use: unspecified exterminator insulin use status Diabetes mellitus type: type 2 Osteoporosis M81.0
[2024-05-25] MEDS: acetaminophen 325 mg Tablet 650 MG PO (14:24)
--- NOTE | 2024-05-25 15:16 | XR_ITS ---
WS: [id number] Pelvis, AP view, 05/25/2024 Clinical Data: pubic rami fx Comparison: Pelvis and right hip, 05/24/2024 Findings: The internal fixation of the right hip intertrochanteric fracture remains stable. The fractures of th e right superior and inferior pubic ramus remain in the same position. The left hip shows osteoarthritis but no fracture. The iliac wings are intact. Vascular calcification s are present. XR/XR pelvis min 3V 69945 Impression: 1. Fractures of the inferior and superior right pubic rami remain in the same p osition. 2. Stable right hip intertrochanteric fracture internal fixation.
--- NOTE | 2024-05-25 15:31 | CTR_ITS ---
PROCEDURE INFORMATION: Exam: CT Abdomen And Pelvis Without Contrast Exam date and time: 05/25/2024 4:00 PM Age: 79 years old Clinical indication: Abnormal findings; Abnormal radiologic finding of the abdomen; Radiologic exam and body structure: RT renal mass on ultrasound; Additional info: Right rnal mass TECHNIQUE: Imaging protocol: Computed tomography of the abdomen and pelvis without contrast. Radiation optimization: All CT scans at this facility use at least one of these dose optimization techniques: automated exposure control; mA and/or kV adjustment per patient size (includes targeted exams where dose is matched to clinical indication); or iterative reconstruction. COMPARISON: CT pelvis wo con [id number] 05/24/2024 4:39 PM RADIATION DOSE METRICS: Total DLP (mGy-cm): 760 FINDINGS: Liver: Normal. No mass. Gallbladder and biliary ducts: Cholelithiasis. Pancreas: Normal. No ductal dilation. Spleen: Normal. No splenomegaly. Adrenal glands: Normal. No mass. Kidneys and ureters: 4.8 cm exophytic simple cyst arising from the upper pole of the right kidney. No hydronephrosis. There is a focal area within the lateral aspect of the right mid kidney measuring 2.0 cm which is isodense to the surrounding renal parenchyma. A similar focus is seen in the left kidney. No definite suspicious renal lesion, though assessment is limited without intravenous contrast. Stomach and bowel: Sigmoid diverticulosis. Appendix: No evidence of appendicitis. Intraperitoneal space: Unremarkable. No free air. No significant fluid collection. Vasculature: Moderate atherosclerotic calcifications of the abdominal aorta and its branch vessels. Lymph nodes: Unremarkable. No enlarged lymph nodes. Urinary bladder: Unremarkable as visualized. Reproductive: Unremarkable as visualized. Bones/joints: Multilevel degenerative changes of the lumbar spine. Similar compression deformity at L5. Advanced bilateral facet arthropathy in the lower lumbar spine. Redemonstrated comminuted moderately displaced right superior pubic ramus fracture and comminuted mildly displaced right inferior pubic ramus fracture. Redemonstrated right intramedullary femoral nail transfixing a remote fracture. Soft tissues: No acute findings. CT/CT abdomen pelvis wo con [id number] IMPRESSION: 1. Focal fullness along the right lateral renal cortex is isodense to the surrounding renal parenchyma and is likely related to normal renal cortex which appears mildly atrophic but otherwise unremarkable. If patient's renal function improves, CT or MRI with contrast could be considered for further evaluation of underlying renal lesions. 2. 4.8 cm right renal simple appearing cysts. 3. Similar right superior and inferior pubic rami fractures. 4. Similar moderate L5 compression deformity. 5. Cholelithiasis. COMMENTS: Consistent with the [employer]'s Incidental Findings Committee white paper (J Am Brenda Radiol 2018): Any incidental renal lesion less than 1 cm or classified as too small to characterize, or any incidental cystic renal lesion characterized as simple-appearing, is likely benign. No follow-up imaging is recommended for these lesions per consensus recommendations based on imaging criteria.
[2024-05-25 15:33] VITALS: BP 169/96; PULSE 113; RESP 16; TEMP 36.7; O2SAT 97
[2024-06-01 14:03] LABS: Vit D 1,25 (Oh)2, Total 21 pg/mL (18-72); Vit D2 1,25 (Oh)2 <8 pg/mL; Vit D3 1,25 (Oh)2 21 pg/mL
== END 2024-05-25 16:35 | disposition home or self-care (01) | DRG 544 ==
LOC: ER 18:46 → MEDSURG 19:53
PROVIDERS: Admitting Provider Internal Medicine; Emergency Provider Nurse Practitioner Family; PCP Family Medicine; Visit Provider Student in an Organized Health Care Education/Training Program
DX: M80.0B1A Age-related osteoporosis with current pathological fracture, right pelvis, initial encounter for fracture (principal); E11.22 Type 2 diabetes mellitus with diabetic chronic kidney disease; N18.9 Chronic kidney disease, unspecified; T45.2X5A Adverse effect of vitamins, initial encounter; R74.01 Elevation of levels of liver transaminase levels; Z89.211 Acquired absence of right upper limb below elbow; Z79.84 Long term (current) use of oral hypoglycemic drugs; Z87.81 Personal history of (healed) traumatic fracture
CPT/HCPCS: 36415; 36416; 71045; 72190; 72192; 73502; 74176; 76705; 80053; 80074; 82306; 82310; 82550; 82607; 82652; 82962; 82977; 83036; 83540; 83550; 83735; 83970; 84100; 84443; 85025; 85610; 93005; 96372; 97116; 97161; 99285; J1815; J7120

== ENCOUNTER → 2024-06-08 09:54 | Outpatient (BNVA) | payer MEDICAID, SELFPAY | PROVIDERS: PCP Family Medicine; Visit Provider Physician Assistant | DX: S32.501A Unspecified fracture of right pubis, initial encounter for closed fracture (principal); X58.XXXA Exposure to other specified factors, initial encounter; Z79.01 Long term (current) use of anticoagulants | CPT/HCPCS: 72190; 99213 ==

== ENCOUNTER → 2024-07-11 09:03 | Outpatient (BNVA) | payer MEDICAID, SELFPAY | PROVIDERS: PCP Family Medicine; Visit Provider Physician Assistant | DX: S32.501A Unspecified fracture of right pubis, initial encounter for closed fracture (principal); X58.XXXA Exposure to other specified factors, initial encounter; Z79.01 Long term (current) use of anticoagulants | CPT/HCPCS: 72190; 99213 ==

== ENCOUNTER → 2024-11-17 09:45 | Outpatient (BNVA) | payer MEDICAID, SELFPAY | PROVIDERS: PCP Family Medicine; Visit Provider Physician Assistant | DX: S32.501A Unspecified fracture of right pubis, initial encounter for closed fracture (principal); X58.XXXA Exposure to other specified factors, initial encounter | CPT/HCPCS: 72190; 99213 ==

== ENCOUNTER 2025-04-12 10:03 | Outpatient (CLI) | payer MEDICAID, SELFPAY ==
--- NOTE | 2025-04-12 10:11 | MM_ITS ---
WS: [id number] RIGHT 3D TOMOSYNTHESIS DIGITAL MAMMOGRAPHY WITH CAD CLINICAL INFORMATION: HX OF BREAST CANCER History of LEFT mastectomy. COMPARISON: 2023 TECHNIQUE: 3 views of the right breast were obtained. FINDINGS: Scattered fibroglandular densities of the right breast. Vascular calcification. No suspicious focal mass, asymmetry, calcifications, or architectural distortion. No evidence of malignancy. MM/MM diag RT tomosynthesis [id number] IMPRESSION: DENSITY: There are scattered areas of fibroglandular density. BI-RADS: 2 - Benign. FOLLOW UP: 1 Year Follow-up Recommend return to annual diagnostic mammography.
== END 2025-04-12 10:04 | disposition home or self-care (01) ==
LOC: RAD 10:03
PROVIDERS: PCP Family Medicine; Visit Provider Family Medicine
DX: Z08 Encounter for follow-up examination after completed treatment for malignant neoplasm (principal); Z85.3 Personal history of malignant neoplasm of breast
CPT/HCPCS: 77061; G0279

== ENCOUNTER 2025-05-16 09:14 | Outpatient (CLI) | payer MEDICAID, SELFPAY ==
--- NOTE | 2025-05-16 09:39 | US_ITS ---
WS: [id number] Complete ABDOMINAL ULTRASOUND HISTORY: ELEVATED LFT'S COMPARISON: 05/25/2024 Liver: 13.6 cm in length. Normal size liver and echogenicity. No bile duct dilatation or mass. Portal Vein: Normal hepatopetal flow with monophasic waveform. Gallbladder: Normally distended gallbladder. Mild gallbladder wall thickening with no pericholecystic fluid. Small stones have been identified on prior studies. Stones and sludge layering in the gallbladder. CBD: 0.4 cm Pancreas: Partially visualized. Right kidney: 9.9 cm x 4.4 x 4.3 cm. Cortex:1.1 cm. Normal size kidney. Patient has a known cyst upper pole. Cyst measures 4.7 x 5.0 x 4.2 cm. Left kidney: 9.0 cm x 4.4 cm x 4.8 cm. Cortex: 0.9 cm. Normal size and echogenicity. No hydronephrosis or mass. Spleen: 8.4 cm. Normal size and echogenicity. Aorta and IVC: Unremarkable abdominal aorta and IVC. US/US abdomen complete* [id number] Impression: 1. Very mild diffuse gallbladder wall thickening with stones and sludge. Surgi padilla evaluation for possible early cholecystitis. Gallstones were identified on the prior study. There is no hydrops. 2. Normal common bile duct. 3. No renal obstruction.
== END 2025-05-16 09:15 | disposition home or self-care (01) ==
LOC: RAD 09:17
PROVIDERS: PCP Family Medicine; Visit Provider Family Medicine
DX: R79.89 Other specified abnormal findings of blood chemistry (principal); K80.20 Calculus of gallbladder without cholecystitis without obstruction
CPT/HCPCS: 76700

== ENCOUNTER 2025-05-24 08:36 | Outpatient (CLI) | payer MEDICAID, SELFPAY ==
--- NOTE | 2025-05-24 08:52 | NM_ITS ---
WS: [id number] NUCLEAR MEDICINE BONE SCAN Radiopharmaceutical: 25.4 Tc-99m MDP mCi IV Injection site: Antecubital Postinjection imaging delay: 1 hr CLINICAL INFORMATION: ELEVATED ALKALINE PHOSPHATASE LEVEL COMPARISON: None. FINDINGS: Bone lesions: There are no osseous lesions suspicious for metastatic disease. Soft tissue contours: Normal. Kidneys: Normal. Other findings: Degenerative type uptake involving both AC joints, both knees, and both ankles. NM/NM bone scan whole body* [id number] IMPRESSION: No evidence of osseous metastatic disease.
== END 2025-05-24 08:37 | disposition home or self-care (01) ==
PROVIDERS: PCP Family Medicine; Visit Provider Family Medicine
DX: R74.8 Abnormal levels of other serum enzymes (principal)
CPT/HCPCS: 78306; A9561

== ENCOUNTER → 2025-05-25 09:39 | Outpatient (BNVA) | payer MEDICAID, SELFPAY | PROVIDERS: PCP Family Medicine; Visit Provider Student in an Organized Health Care Education/Training Program | DX: K80.20 Calculus of gallbladder without cholecystitis without obstruction (principal) | CPT/HCPCS: 99203 ==

== ENCOUNTER 2025-09-24 09:19 | Emergency (ER) | payer MEDICAID, SELFPAY ==
--- NOTE | 2025-09-24 09:23 | XR_ITS ---
WS: [id number] Abdomen series, Flat and upright 09/24/2025 Clinical Data: constipation Comparison: Abdomen, 05/19/2021 Findings: No free air is seen beneath the diaphragms. No abnormal intra- abdominal masses or calcifications are seen. There is fecal material throughout colon. There is degenerative change of all the lower thoracic and lumbar vertebral bodies. There is vascular calcification. There is a nail in the right femoral head. XR/XR abdomen min 2V [id number] Impression: 1. Large amount of fecal material in the colon. 2. 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
--- OUTSIDE RECORDS SUMMARY | 2025-09-24 09:24 | XMS_ITS | Clinical Summary ---
Author Organization [facility] Address [address] [place] [address] Phone Care Team Providers Care Kiln Drawer Name Role Phone Unavailable Primary Care Provider Unavailabl e Allergies Active Allergy Reactions Criticality Noted Date Comments Aspirin Other (See Comments) 05/19/2018 Hard to breath Morphine Nausea and Vomiting Low 05/19/2018 Penicillins Hives High 05/19/2018 Medications allopurinol (ZYLOPRIM) 300 mg tablet Take 300 mg by mouth daily. Active carvedilol (COREG) 3.125 mg tablet Take 3.125 mg by mouth 2 times daily with meals. Active atorvastatin (LIPITOR) 20 mg tablet Take 20 mg by mouth late in the day. Active acetaminophen (TYLENOL) 500 mg tablet Take 500 mg by mouth every 6 hours as needed. Active OTHER Bovin Collagen 6000 units 1 tablet po tid with each meal . Active OTHER Probiotic bid . Active Active Problems Problem Noted Date Diagnosed Date Wound dehiscence, surgical 06/22/2018 Diabetic polyneuropathy asso ciated with type 2 diabetes mellitus 06/09/2018 Diabetic ulcer of right foot associated with type 2 diabetes mellitus 05/19/2018 Type 2 diabetes mellitus wit h hyperglycemia, without long-term current use of insulin 05/19/2018 Essential hypertension 05/19/2018 History of stroke 05/19/2018 Overview (05/19/2018): At age 47 with residual right sided weakness. Hyperkalemia 05/19/2018 Protein calorie malnutrition 05/19/2018 Overview (05/19/2018): Suspected on admission 05/19/2018. Resolved Problems Problem Noted Date Diagnosed Date Resolved Date Osteomyelitis of right foot 05/19/2018 06/09/2018 Cellulitis and abscess of toe of right foot 05/19/2018 06/09/2018 Immunizations Immunization Administration Dates Next Due (PREVNAR 13)(6 WKS UP) PNEUM OCOCCAL CONJUGATE (PCV13) 0.5 ML, IM 05/22/2018 Family History Medical History Relation Name Comments Diabetes Brother Heart Disease Brother of [place] age 64 Other Daughter 1 of kidney failure, morbid obesity, weighed 600 lbs, smoked 4 packs cigarettes a day Crohn's Disease Daughter 2 Other Daughter 2 endometriosis Heart Disease Father of massiv e heart attack age 59 Heart Disease Mother of massiv e [place] at age 56 Diabetes Sister Other Son obesity Relation Name Status Comments Brother Daughter 1 Daughter 2 Alive Father Mother Sister Alive Son Alive Social History Tobacco Use Types Packs/Day Years Used Date Smoking Tobacco: Never Smokeless Tobacco: 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 Alcohol Use Standard Drinks/Week Comments No 0 (1 standard drink = 0.6 oz pur e alcohol) Comments Unknown Sex and Gender Information Value Date Recorded Sex Assigned at Not on file Legal Sex Female 12:30 AM CDT Gender Identity Not on file Sexual Orientation Not on file Last Filed Vital Signs Vital Sign Reading Time Taken Comments Blood Pressure 142/80 05/22/2018 12:33 PM CDT Pulse 106 05/22/2018 12:33 PM CDT Temperature 36.4 C (97.5 F) 05/22/2018 12:33 PM CDT Respiratory Rate 18 05/22/2018 12:33 PM CDT Oxygen Saturation 99% 05/22/2018 12:33 PM CDT Inhaled Oxygen Concentration - - Weight 74.8 kg (165 lb) 07/07/2018 1:44 PM CDT Height 160 cm (5' 3 ) 07/07/2018 1:44 PM CDT Body Mass Index 29.23 07/07/2018 1:44 PM CDT Plan of Treatment Health Maintenance Due Date Last Done Comments DIABETES ANNUAL RETINAL EXAM 1961 DIABETES MICROALBUMIN ANNUAL SCREEN 1961 LDL CHOLESTEROL ANNUAL 1961 DTAP/TDAP/TD VACCINES (1 - Tdap) 1962 ZOSTER VACCINE (1 of 2) 1993 OSTEOPOROSIS SCREENING 02/14/2008 RSV VACCINE (60+ or ) (1 - 1-dose 75+ series) 2018 PNEUMOCOCCAL VACCINE 50+ YEA RS (2 of 2 - PPSV23, PCV20, or PCV21) 07/17/2018 05/22/2018 DIABETES HBA1C Q 6 MONTHS 11/19/2018 05/19/2018 DIABETES ANNUAL FOOT EXAM 06/09/2019 06/09/2018 INFLUENZA VACCINE (#1) 2025 Procedures Procedure Name Priority Date/Time Associated Diagnosis Comments HEMOGLOBIN A1C Routine 05/19/2018 7:52 AM CDT from Last 3 Months or Most Recently Relevant to Health Maintenance Results * HEMOGLOBIN A1C (05/19/2018 7:52 AM CDT) HEMOGLOBIN A1C 5.9 4.0 - 6.0 % 05/20/2018 6:07 AM CDT [facility] [employer] [facility] EST. AVG GLUCOSE, A1C 123 mg/dL 05/20/2018 6:07 AM CDT [facility] [employer] [facility] Blood Venipuncture / Unknown 05/19/2018 7:52 AM CDT 05/19/2018 8:02 AM CDT Narrative [facility] [employer] [facility] - 05/20/2018 6:07 AM CDT HGB A1C INTERPRETATION NORMAL: <5.7% PRE-DIABETES: 5.7 - 6.4% DIABETES: 6.5% OR GREATER us Susanna Jennings DO CHEMISTRY ORDERABLES Final R esult [facility] [employer] [facility] CLIA# [id number] [address] [place], [place] [address] from Last 3 Months or Most Recently Relevant to Health Maintenance Additional Health Concerns Infection Onset Date Last Indicated VRE Comment:Rt foot tissue 05/20/18 05/20/2018 05/20/2018 Insurance [place] [employer] Medicaid Advance Directives For more information, please contact: [phone] * Full Code (Latest Code Status on File) Date Activated Date Inactivated Comments 05/19/2018 7:14 AM 05/22/2018 6:06 PM
--- OUTSIDE RECORDS SUMMARY | 2025-09-24 09:24 | XMS_ITS | Clinical Summary ---
Author Organization [facility] Address [address] [place]: Epic Prelude ADT RONALD MARROQUIN [address] Care Team Providers Care Student Career Development Specialist Name Role Phone Unavailable Primary Care Provider Unavailabl e Allergies Active Allergy Reactions Criticality Noted Date Comments Aspirin Other (See Comments) 05/19/2018 Hard to breath Morphine Nausea and Vomiting Low 05/19/2018 Penicillins Hives High 05/19/2018 Medications allopurinoL (ZYLOPRIM) 300 mg tablet Take 300 mg by mouth daily. 8 Active carvediloL (COREG) 3.125 mg tablet Take 3.125 mg by mouth 2 times daily with meals. 8 Active atorvastatin (LIPITOR) 20 mg tablet Take 20 mg by mouth late in the day. 8 Active OTHER Bovin Collagen 6000 units 1 tablet po tid with each meal . 8 Active OTHER Probiotic bid . 8 Active acetaminophen (TYLENOL) 500 mg tablet Take 500 mg by mouth every 6 hours as needed. 8 Active Active Problems Problem Noted Date Diagnosed Date Wound dehiscence, surgical 06/22/2018 Diabetic polyneuropathy asso ciated with type 2 diabetes mellitus 06/09/2018 Type 2 diabetes mellitus wit h hyperglycemia, without long-term current use of insulin 05/19/2018 History of stroke 05/19/2018 Overview (01/30/2021): At age 47 with residual right sided weakness. Diabetic ulcer of right foot associated with type 2 diabetes mellitus 05/19/2018 Essential hypertension 05/19/2018 Hyperkalemia 05/19/2018 Protein calorie malnutrition 05/19/2018 Overview (01/30/2021): Suspected on admission 05/19/2018. Resolved Problems Problem Noted Date Diagnosed Date Resolved Date Osteomyelitis of right foot 05/19/2018 06/09/2018 Cellulitis and abscess of toe of right foot 05/19/2018 06/09/2018 Immunizations Immunization Administration Dates Next Due (PREVNAR 13)(6 WKS UP) PNEUM OCOCCAL CONJUGATE (PCV13) 0.5 ML, IM 05/22/2018 Family History Medical History Relation Name Comments Diabetes Brother Heart Disease Brother of [place] age 64 Other Daughter 1 of kidney failure, morbid obesity, weighed 600 lbs, smoked 4 packs cigarettes a day Crohn's Disease Daughter 2 Other Daughter 2 endometriosis Heart Disease Father of massiv e heart attack age 59 Heart Disease Mother of massiv e [place] at age 56 Diabetes Sister Other Son obesity Relation Name Status Comments Brother Daughter 1 Daughter 2 Alive Father Mother Sister Alive Son Alive Social History Tobacco Use Types Packs/Day Years Used Date Smoking Tobacco: Never Smokeless Tobacco: Never Comments:Quit smoking: was e xposed wood fire heat residential Alcohol Use Standard Drinks/Week Comments No 0 (1 standard drink = 0.6 oz pur e alcohol) Comments Unknown Sex and Gender Information Value Date Recorded Sex Assigned at Not on file 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 Gender Identity Not on file Sexual Orientation Not on file Last Filed Vital Signs Vital Sign Reading Time Taken Comments Blood Pressure 142/80 05/22/2018 12:33 PM CDT Pulse 106 05/22/2018 12:33 PM CDT Temperature 36.4 C (97.5 F) 05/22/2018 12:33 PM CDT Respiratory Rate 18 05/22/2018 12:33 PM CDT Oxygen Saturation - - Inhaled Oxygen Concentration - - Weight 74.8 [...] 05/22/2018 DIABETES HBA1C Q 6 MONTHS 11/19/2018 05/19/2018, DIABETES ANNUAL FOOT EXAM 06/09/2019 06/09/2018 INFLUENZA VACCINE (#1) 2025 Procedures Procedure Name Priority Date/Time Associated Diagnosis Comments HEMOGLOBIN A1C Routine 05/19/2018 7:52 AM CDT from Last 3 Months or Most Recently Relevant to Health Maintenance Results * HEMOGLOBIN A1C (05/19/2018 7:52 AM CDT) HEMOGLOBIN A1C 5.9 4.0 - 6.0 % 05/20/2018 6:07 AM CDT [facility] [employer] [facility] EST. AVG GLUCOSE, A1C 123 mg/dL 05/20/2018 6:07 AM CDT [facility] [employer] [facility] Blood Venipuncture / Unknown 05/19/2018 7:52 AM CDT 05/19/2018 8:02 AM CDT Narrative [facility] [employer] [facility] - 05/20/2018 6:07 AM CDT If not available from last three months. HGB A1C INTERPRETATION NORMAL: <5.7% PRE-DIABETES: 5.7 - 6.4% DIABETES: 6.5% OR GREATER us Susanna Jennings DO CHEMISTRY ORDERABLES Final R esult [facility] [employer] [facility] CLIA# [id number] [address] [place] [address] [facility] [employer] [facility] CLIA# [id number] [facility] [place] [address] from Last 3 Months or Most Recently Relevant to Health Maintenance Additional Health Concerns Infection Onset Date Last Indicated VRE Comment:Rt foot tissue 05/20/18 05/20/2018 05/24/2018 Insurance * Guarantor: SHRADDHA BULL Account Type Relation to Patient Date of Phone Billing Address Personal/Family [address] [place] [address] RX [employer] Medicaid
[2025-09-24 09:25] VITALS: BP 149/80; PULSE 97; RESP 18; TEMP 36.6; O2SAT 96
--- NOTE | 2025-09-24 10:14 | W.ED.ABDPA2 ---
HPI - Abdominal Pain General: Chief Complaint: Abdominal Pain Stated Complaint: no bowel movement since wednesday Time Seen by Provider: 09/24/25 10:01 Source: patient Mode of arrival: ambulatory Limitations: no limitations History of Present Illness: Patient is an 80-year-old female presents to ED today with a complaint of constipation. She states she has not had a bowel movement since Wednesday (about 4-5 days ago). Patient states she is not having any abdominal pain. She has reported straining with defecation which has aggravated her hemorrhoids. She has been treating these with Preparation H among other [id number] medications and these seem to be helping. Patient did take a Senokot medication on Wednesday and again yesterday but these have not helped her have a bowel movement. Again she is not having any abdominal pain. No vomiting. Vital signs are normal upon arrival. No fevers. MD elicited complaint: other (constipation) Pertinent past history: constipation Onset (ago): day(s) Location: None Radiation: none Migration to: no migration Relieving factors: nothing Associated Symptoms: Reports constipation; Denies chills, GI cramping, dysuria, fever(s), hematuria, melena, nausea and vomiting Related Data Home Medications ?Medication ?Instructions ?Recorded ?Confirmed allopurinol 300 mg tablet 300 mg PO DAILY 12/09/20 05/25/25 ascorbic acid (vitamin C) 500 mg 500 mg PO DAILY 12/09/20 05/25/25 tablet (Vitamin C) atorvastatin 20 mg tablet 20 mg PO QAM 12/09/20 05/25/25 Held on 05/25/24. Instructions: Resume on 06/08/24. carvedilol 3.125 mg tablet 3.125 mg PO BID 12/09/20 05/25/25 cetirizine 10 mg tablet 10 mg PO DAILY 05/25/24 05/25/25 chromium picolinate 200 mcg tablet 200 mcg PO DAILY 05/25/24 05/25/25 dapagliflozin propanediol 10 mg 10 mg PO DAILY 05/25/24 05/25/25 tablet (Farxiga) dulaglutide 0.75 mg/0.5 mL 0.75 mg SUBCUT Q7D 05/25/24 05/25/25 subcutaneous pen injector ([facility]) Previous Rx's ?Medication ?Instructions ?Recorded apixaban 2.5 mg tablet 2.5 mg PO BID 35 days #70 tabs 06/08/24 lactulose 20 gram oral packet 20 g PO BID #15 ea 09/24/25 Allergies Allergy/AdvReac Type Severity Reaction Status Date / Time aspirin Allergy Severe ALGY-Anaphy Verified 05/25/25 09:53 laxis Penicillins Allergy Severe ALGY-Anaphy Verified 05/25/25 09:53 laxis ibuprofen Allergy Mild ADR-Nausea Verified 05/25/25 09:53 morphine Allergy Mild ADR-Vomitin Verified 05/25/25 09:53 g Review of Systems Const: Denies: fever(s), chills, body aches, fatigue or malaise Card: Denies: chest pain Resp: Denies: dyspnea GI: Reports: constipation and rectal pain; Denies: abdominal pain, nausea, vomiting, GI cramping, rectal swelling or melena : Denies: flank pain, dysuria or hematuria Musc: Denies: back pain Skin/Breast: Denies: rash Neuro: Denies: dizziness PFSH ED PFSH: Medical History Amputation of right forefoot Diabetes mellitus Social History Smoking and tobacco/nicotine status: never used tobacco/nicotine Substance/Drug Use: never Physical Exam Const: COMMON NORMALS: no acute distress, average body habitus, patient oriented x3, no limitations, healthy appearing, alert and well nourished GENERAL APPEARANCE: cooperative ORIENTATION/CONSCIOUSNESS: Yes awake, Yes oriented to person, Yes oriented to place and Yes oriented to time Resp: COMMON NORMALS: normal respiratory effort and clear to auscultation bilaterally AUSCULTATION: clear to auscultation bilaterally Cardio: COMMON NORMALS: regular rate and regular rhythm RATE: regular rate RHYTHM: regular rhythm GI: COMMON NORMALS: Normal to inspection, nondistended, normoactive bowel sounds present, Soft to palpation, non-tender, No hepatosplenomegaly present and no masses INSPECTION: Yes normal to inspection AUSCULTATION: Yes normoactive bowel sounds PALPATION: Yes Soft to palpation, No Tenderness to palpation present (GI), No Guarding due to palpation present (GI), No Rigid due to palpation and Yes No hepatosplenomegaly present RECTAL EXAM: External hemorrhoid(s) present (minor-non thrombosed) and other : COMMON NORMALS: Yes no CVA tenderness BLADDER/KIDNEY EXAM: Yes no CVA tenderness Back/Pelvis: COMMON NORMALS: no CVA tenderness Neuro: COMMON NORMALS: patient oriented x3 SENSORIUM/ORIENTATION: Yes alert, Yes oriented to person, Yes oriented to place and Yes oriented to time Course Vital Signs: Vital signs: Vital Signs Temperature 97.9 F 09/24/25 09:25 Pulse Rate 91 09/24/25 11:39 Respiratory Rate 18 09/24/25 09:25 Blood Pressure 149/80 09/24/25 09:25 Pulse Oximetry 97 09/24/25 11:39 Oxygen Delivery Me thod Room Air 09/24/25 09:25 MDM - Abdominal Pain Medical Decision Making Patient clinically appears in no acute distress. She presents to the ED today with a main complaint of constipation. Vital signs are stable. She was given an enema here and did have a large amount of rabbit pellets that were evacuated. Patient wants to go home. Blood work was obtained here in the emergency department. CBC is unremarkable. Chemistry showing a creatinine of 1.7 which is not far off from her baseline. She was noted to have elevations to her AST/ALT/alk phos although these have been present for about a year now. She has a normal tbili. Surprisingly she was found to have a lipase of over 1100. Again she has absolutely no abdominal tenderness by history or by physical exam. We did discuss however would like to get imaging of her abdomen to evaluate etiology of this further. DDx for elevated lipase includes acute/chronic pancreatitis-less likely given her lack of pain, pancreatic stones/tumors, cholecystitis-again less likely given lack of pain, infections, bowel obstructions, among others. Discussed how some etiologies could be life-threatening. Patient adamantly does not want to stay. She states she has a big day ahead of her with [employer] activities and wants to leave. She was verbalized on risks of leaving and understands these and would still like to go home. She states she will follow-up with primary care soon as possible. Return to ED precautions discussed. Patient will sign AMA. Medical Records I reviewed the patient's medical records. Lab Data I reviewed the patient's lab results. 09/24/25 10:58 09/24/25 10:58 Labs/Radiology: Radiology Impressions Abdomen X-Ray 09/24/25 09:23 Impression: 1. Large amount of fecal material in the colon. 2. 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 Laboratory Results WBC 9.10 10^3/uL (3.29-11.43) 09/24/25 10:58 RBC 3.53 10^6/uL (3.85-5.65) L 09/24/25 10:58 Hgb 11.30 g/dL (11.27-16.99) 09/24/25 10:58 Hct 36.6 % (36-47) 09/24/25 10:58 MCV 103.7 fl (85-98) H 09/24/25 10:58 MCH 32.0 pg (27-33) 09/24/25 10:58 MCHC 30.9 g/dL (30-55) 09/24/25 10:58 RDW 16.0 % (12.1-15.1) H 09/24/25 10:58 Plt Count 222 10^3/cmm (157-399) 09/24/25 10:58 MPV 9.9 fL (7.4-10.4) 09/24/25 10:58 Neut % (Auto) 57.8 % 09/24/25 10:58 Lymph % (Auto) 27.7 % 09/24/25 10:58 Clinch % (Auto) 12.2 % 09/24/25 10:58 Eos % (Auto) 1.4 % 09/24/25 10:58 Baso % (Auto) 0.4 % 09/24/25 10:58 Neut # (Auto) 5.25 10^3/uL (1.8-7.7) 09/24/25 10:58 Lymph # (Auto) 2.5 10^3/uL (0.8-4.8) 09/24/25 10:58 Clinch # (Auto) 1.1 10^3/uL (0.2-0.9) H 09/24/25 10:58 Eos # (Auto) 0.1 10^3/uL (0.0-0.8) 09/24/25 10:58 Baso # (Auto) 0.0 10^3/uL (0.0-0.1) 09/24/25 10:58 Nucleated RBC % (auto) 0 % 09/24/25 10:58 Nucleated RBCs # 0.0 /100WBC 09/24/25 10:58 Sodium 139 mmol/L (136-145) 09/24/25 10:58 Potassium 5.1 mmol/L (3.5-5.1) 09/24/25 10:58 Chloride 103 mmol/L (98-107) 09/24/25 10:58 Carbon Dioxide 18 mmol/L (22-29) L 09/24/25 10:58 Anion Gap 23.1 (5-19) H 09/24/25 10:58 BUN 19 mg/dL (8-23) 09/24/25 10:58 Creatinine 1.7 mg/dL (0.5-0.9) H 09/24/25 10:58 GFR Calculation Not Reportable 09/24/25 10:58 Glucose 161 mg/dL (65-115) H 09/24/25 10:58 Calculated Osmolality 294 mOsm/kg (285-295) 09/24/25 10:58 Calcium 10.4 mg/dL (8.5-10.5) 09/24/25 10:58 Total Bilirubin 0.8 mg/dL (0.15-1.2) 09/24/25 10:58 AST 92 U/L (0-32) H 09/24/25 10:58 ALT 52 U/L (0-33) H 09/24/25 10:58 Alkaline Phosphatase 463 U/L (35-105) H 09/24/25 10:58 Total Protein 6.8 g/dL (6.6-8.7) 09/24/25 10:58 Albumin 3.7 g/dL (3.5-5.2) 09/24/25 10:58 Globulin 3.1 g/dL (1.3-4.6) 09/24/25 10:58 Lipase 1134 U/L (13-60) H 09/24/25 10:58 All radiology interpretation(s) finalized by discharge Discharge Plan Discharge Patient Disposition: Left Against Medical Advice Clinical Impression: Elevated lipase Constipation Qualifiers: Constipation type: unspecified constipation type Qualified Code(s): K59.00 - Constipation, unspecified Condition: Stable Prescriptions: New lactulose 20 gram packet 20 g PO BID Qty: 15 0RF No Action apixaban 2.5 mg tablet 2.5 mg PO BID 35 Days Qty: 70 0RF atorvastatin 20 mg tablet 20 mg PO QAM carvedilol 3.125 mg tablet 3.125 mg PO BID ascorbic acid (vitamin C) [Vitamin C] 500 mg Tablet 500 mg PO DAILY allopurinol 300 mg tablet 300 mg PO DAILY cetirizine 10 mg tablet 10 mg PO DAILY chromium picolinate 200 mcg Tablet 200 mcg PO DAILY Farxiga 10 mg tablet 10 mg PO DAILY Trulicity 0.75 mg/0.5 mL pen injector 0.75 mg SUBCUT Q7D Rx Instructions: on Wednesday Discharge Orders: Discharge ED (Routine); Ordered 09/24/25 Ordered By: Kamille Andrews Referrals: Joshua Luna MD [Primary Care Provider, Family Practice] Patient Instructions: Constipation (DC) Activity Restrictions/Additional Instructions: As we discussed, you were seen for constipation. You were given an enema here with some results. We spoke about medications to help with constipation at home. You are incidentally found to have significant elevations to your lipase here in the emergency department with a lipase of over 1100. You are encouraged to stay for additional workup regarding this including imaging but you have declined. We did discuss how certain conditions with your pancreas including pancreatitis can be life-threatening. You have understood these risks and are still deciding to leave AGAINST MEDICAL ADVICE. You are encouraged to follow-up with your primary care provider as soon as possible. You are also found to have elevations to your liver enzymes although these have been present for over a year. You need to return to the emergency department at any time if you start developing abdominal pain, fevers, repetitive episodes of vomiting, or any other concerns you may have. Print Language: Macedonian Coding Level of Care Code ED [employer] for [employer]
[2025-09-24] MEDS: Fleet Enema 133 mL Enema PR (10:47)
[2025-09-24 11:06] LABS: Hematocrit 36.6 % (36-47); Hemoglobin 11.30 g/dL (11.27-16.99); Mean Corpuscular HGB Conc 30.9 g/dL (30-55); Mean Corpuscular Hemoglobin 32.0 pg (27-33); Mean Corpuscular Volume 103.7 fl (85-98); Nucleated Red Blood Cells % 0 %; Platelet Count 222 10^3/cmm (157-399); Red Blood Count 3.53 10^6/uL (3.85-5.65); White Blood Count 9.10 10^3/uL (3.29-11.43)
[2025-09-24 11:36] LABS: Alanine Aminotransferase 52 U/L (0-33); Albumin Level 3.7 g/dL (3.5-5.2); Alkaline Phosphatase 463 U/L (35-105); Blood Urea Nitrogen 19 mg/dL (8-23); Calcium 10.4 mg/dL (8.5-10.5); Carbon Dioxide 18 mmol/L (22-29); Chloride 103 mmol/L (98-107); Globulin 3.1 g/dL (1.3-4.6); Glucose 161 mg/dL (65-115); Osmolality Calculated 294 mOsm/kg (285-295); Sodium 139 mmol/L (136-145); Total Protein 6.8 g/dL (6.6-8.7)
[2025-09-24 11:38] LABS: Anion Gap 23.1 (5-19); Potassium 5.1 mmol/L (3.5-5.1)
[2025-09-24 11:39] VITALS: PULSE 91; O2SAT 97
[2025-09-24 11:39] LABS: Aspartate Amino Transferase 92 U/L (0-32)
[2025-09-24 11:45] LABS: Lipase 1134 U/L (13-60)
[2025-09-24] MEDS: lactulose oral liq 20 gm/30 mL UDC 30 GM PO (11:58)
== END 2025-09-24 12:05 | disposition left against medical advice (07) ==
PROVIDERS: Emergency Provider Physician Assistant; PCP Family Medicine
DX: Z53.21 Procedure and treatment not carried out due to patient leaving prior to being seen by health care provider (principal); K59.00 Constipation, unspecified; R74.8 Abnormal levels of other serum enzymes; Z79.85 Long-term (current) use of injectable non-insulin antidiabetic drugs; E11.9 Type 2 diabetes mellitus without complications
CPT/HCPCS: 36415; 74019; 80053; 83690; 85025; 99284; J9999